=== PATIENT | female | born 1965 | race Caucasian/White ===

== ENCOUNTER 2019-02-22 14:37 | Outpatient (REF) | payer BC, SELFPAY ==
--- NOTE | 2019-02-22 14:00 | PAPFT_PTH ---
PATIENT: Heather Tipton LOC: N U#:[id number] AGE/SX: 54/F ROOM: RE02/22/[address]: DAYANARA Jones : 1965 BED: DIS: 02/22/2019 SPEC #: [id number] RECD: 02/22/19 17:50 STATUS: ZEYAD REDominic #: [id number] BANG: 02/22/19 14:[address]: Kelli Ansari DEPT: FORMERLY [facility], [facility] Cytology RECD BY: Camila Gutiérrez ENTERED: 02/22/19 17:50 SP TYPE: PAPFT OTHR DR: Lit Mock Tissues: 1 - CX/ENDOCX FOR PAP SMEARS Procedures: PAP THIN PREP/UVM Screening HPV DNA PROBE Comments: [id number]
== END 2019-02-22 14:57 ==
LOC: LBN 14:37
PROVIDERS: PCP Internal Medicine; Visit Provider Nurse Practitioner Family
DX: Z12.4 Encounter for screening for malignant neoplasm of cervix (principal); Z11.51 Encounter for screening for human papillomavirus (HPV)
CPT/HCPCS: 88142; 87624

== ENCOUNTER 2020-07-25 09:42 | Outpatient (REF) | payer BC, SELFPAY ==
[2020-07-25 21:54] LABS: HCT 46.3 % (36.0-46.0); HGB 14.6 g/dL (11.2-15.7); MCH 26.9 pg (27.0-33.0); MCHC 31.5 % (32.0-36.0); MCV 85.4 fL (80-95); Platelet Count 335 10^3/uL (130-400); RBC 5.42 10^6/uL (3.93-5.22); RDW 12.9 % (11.7-14.6); WBC 5.61 10^3/uL (4.4-10.8)
[2020-07-25 22:17] LABS: ALT 22 U/L (14-59); AST 19 U/L (15-37); Albumin 3.9 g/dL (3.4-5.0); Alkaline Phosphatase 73 U/L (46-116); Anion Gap 8.4 mmol/L (3-11); BUN 16 mg/dL (7-18); Bilirubin, Total 0.4 mg/dL (0.2-1.0); CO2 27.6 mmol/L (21.0-32.0); CREATININE 0.87 mg/dL (0.55-1.02); Calcium 8.7 mg/dL (8.5-10.1); Chloride 103 mmol/L (98-107); FREE T4 1.05 ng/dL (0.76-1.46); Glucose 85 mg/dL (74-106); Potassium 4.2 mmol/L (3.5-5.1); Sodium 139 mmol/L (136-145); Total Protein 7.3 g/dL (6.4-8.2)
== END 2020-07-25 10:02 ==
LOC: NCHCN 09:42
PROVIDERS: PCP Internal Medicine; Visit Provider Family Medicine
DX: R53.83 Other fatigue (principal)
CPT/HCPCS: 80053; 85027; 84439; 84443

== ENCOUNTER 2020-10-02 15:14 | Outpatient (REF) | payer BC, SELFPAY | END 2020-10-02 15:34 | LOC: NCHCN 15:14 | PROVIDERS: PCP Internal Medicine; Visit Provider Family Medicine | DX: R30.0 Dysuria (principal) | CPT/HCPCS: 87086 ==

== ENCOUNTER 2020-10-22 00:24 | Outpatient (CLI) | payer BC, SELFPAY ==
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
== END 2020-10-22 00:44 ==
PROVIDERS: PCP Internal Medicine; Visit Provider Family Medicine
DX: Z12.31 Encounter for screening mammogram for malignant neoplasm of breast (principal); N63.25 Unspecified lump in the left breast, overlapping quadrants
CPT/HCPCS: 77063; 77067

== ENCOUNTER 2021-07-02 18:29 | Outpatient (REF) | payer BC, SELFPAY ==
[2021-07-02 15:25] LABS: Bilirubin Negative (Negative); Blood Large (Negative); Clarity Cloudy (Clear); Glucose Negative (Negative); Ketones Negative (Negative); Leukocyte Esterase Small (Negative); Nitrite Negative (Negative); Specific Gravity 1.025 (1.005-1.025); Urobilinogen 0.2 EU/dL (Up TO 0.2); pH 7.5 (5-8)
[2021-07-02 16:24] LABS: RBC >50 HPF (0-2); WBC >50 HPF (0-5)
[2021-07-02 16:25] LABS: Bacteria Negative HPF (Negative); Casts Negative LPF (Negative); Crystals Moderate Amorphous HPF (Negative); Epithelial Cells Negative HPF (Negative); Mucus Negative (Negative); Other Cells Negative (Negative)
[2021-07-02 16:26] LABS: C & S Indicated? Yes
== END 2021-07-02 18:30 | disposition home or self-care (01) ==
LOC: NCHCN 18:29
PROVIDERS: PCP Internal Medicine; Visit Provider Nurse Practitioner Family
DX: R30.0 Dysuria (principal)
CPT/HCPCS: 81003; 81015; 87086

== ENCOUNTER 2022-05-25 13:54 | Emergency (ER) | payer BC, SELFPAY ==
[2022-05-25 13:45] VITALS: BP 99/60; PULSE 65; RESP 18; TEMP 36.4; O2SAT 95
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
[2022-05-25] MEDS: traMADol 50 MG TAB PO (14:37)
[2022-05-25] MEDS: Acetaminophen 500 MG TAB 1000 MG PO (14:37)
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
== END 2022-05-25 18:22 | disposition home or self-care (01) ==
PROVIDERS: Emergency Provider Physician Assistant; PCP Internal Medicine
DX: S63.681A Other sprain of right thumb, initial encounter (principal); S81.011A Laceration without foreign body, right knee, initial encounter; S50.811A Abrasion of right forearm, initial encounter; V29.9XXA Motorcycle rider (driver) (passenger) injured in unspecified traffic accident, initial encounter
CPT/HCPCS: 29125; 73562; 99284; 73090; 73130; 73564; 99283

== ENCOUNTER 2022-06-10 09:57 | Day surgery (SDC) | payer BC, SELFPAY ==
--- NOTE | 2022-06-09 22:14 | PDOC.DSDIS_ITS ---
Discharge Plan Disposition Patient Disposition: HOME Condition: Good Discharge Details Reason For Visit: Screening Attending Provider: Carole Silver Primary Care Provider: Lit Mock Home Meds and New Rx's Prescriptions: No Action bisacodyl [Dulcolax (bisacodyl)] 5 mg tablet,delayed release (DR/EC) 5 mg PO ONCE Qty: 4 0RF Rx Instructions: Take according to provider's instructions for colonoscopy prep. polyethylene glycol 3350 17 gram/dose powder 17 g PO ONCE Qty: 238 0RF Rx Instructions: To be taken as directed by prescriber's office for colonoscopy prep. Mirena 1 EACH intrauterine device 1 unit VG USEASDIRECTD Label Comments: 06/09/16 Pt states placed 5-7 years. PG lisinopril 10 mg Tablet 10 mg PO DAILY tramadol 50 mg tablet 1 tab PO Q8H PRN Label Comments: TAKE 1 TABLET BY MOUTH 3 TIMES DAILY NEEDED FOR PAIN TAKE WITH 2 EXTRA STRENGTH TYLENOL 3 TIMES DAILY acetaminophen [Tylenol Extra Strength] 500 MG tablet 1,000 mg PO PRN PRN Discharge Instructions Additional Instructions: DSU Colonoscopy Post- Op Instructions Instructions for Everyone who is given Anesthesia: For your safety, please do the following for the next twenty-four (24) hours: *Do Not operate a motor vehicle (car, truck, motorcycle, etc.) *Do Not drink alcoholic beverages or use any recreational drugs for the first 24 hours or while taking pain medications. The medications in your body may have a reaction that can be dangerous. *Do Not make any important decisions or sign any important papers. Findings: Minor diverticula Minor I/E hemorrhoids small polyp Abnormal mole. This should be removed. Please schedule 1 hour appt w/ surgical assoc. 1. No lifting over 20 pounds or strenuous activity for the first 24 hours after your procedure. After 24 hours there are no restrictions on your activity but you may feel fatigued for a few days. 2. After you arrive home you may have a light meal and return to your normal diet as you can tolerate it without feeling sick to your stomach. 3. You may have a bloated, gaseous feeling in your belly (abdomen) after a colonoscopy. Passing gas and belching will help. Walking or lying down on your left side with your knees flexed may relieve the discomfort. Call the office at [phone] (Office) or [phone] (Hospital) right away if you notice any of the following: a.Vomiting of blood or ?coffee ground stools?. b.Rectal bleeding 1Tbsp, blood clots or continuous bleeding. c.Severe belly (abdominal) pain. d.A hard distended belly (abdomen) and an inability to pass gas. 4. Please don?t expect to have a normal BM (bowel movement) for 2-3 days after your procedure. 5. If there are questions regarding the findings of your procedure, please contact your doctor 6. If you are unable to contact your doctor with a problem, contact the hospital at [phone]. 7. Continue all your regular medications unless directed otherwise. I understand the above instructions and have no questions. Signature of Patient or Adult Escort Name of Responsible Adult Escort Signature of Nurse Date/Time Activity:: see above Diet:: see above
--- NOTE | 2022-06-09 22:15 | W.COLOREPORT ---
Colonoscopy Report Date of procedure: 06/10/22 Pre-op diagnosis general: CRC screen Post-op diagnosis procedure note: other (Internal and external hemorrhoids/minor diverticula/polyp) Surgeon: Carole Silver Anesthesia Type: General:No Airway Estimated blood loss (mL): 1 Pathology: other Complications: None Disposition: same day Prep: Miralax/Dulcolax Retraction Time: 10 Findings: Without Procedure Description: After informed consent was obtained the patient was taken to the procedure room and placed in a left decubitous position. Monitors were applied and a time out was done. The patients name, date of , procedure, allergies to medications and metal in their body was reviewed. The patient was then sedated. Once sedated and comfortable a rectal exam was done. External exam reveals x2 external hemorrhoids are not thrombosed and an old hemorrhoidal tag. She also has a 1.2 cm irregular pigmented lesion on her left inner thigh. Internal exam revealed a normal sphincter tone and no palpable masses. The scope was then introduced and retrofelexed. Grade 1 internal hemorrhoids were identified, as well as some hemorrhoidal tags without. The scope was then advanced to the cecum without difficulty. The TI and appendiceal orifice were identified. The prep was BB PS 2 in the cecum/right colon and transverse colon. BB PS 3 in the left colon sigmoid and rectum. For a total of 7.. She had a few small minor diverticula in the sigmoid colon with no signs of active bleeding or infection. She had a 0.75 cm lesion with irregular pigmentation on her left inner thigh-this should be removed. It is suspicious for a melanoma. She has extensive history of sun exposure. She has a Polyp at 30 cm, 0.75 mm and flat.. This is removed with a cold snare. All specimen is retrieved and no bleeding is noted. She also has an asymmetric bowel freckle on her left medial thigh that should be removed. The scope was then slowly retracted over 10 minutes back into the rectum. The scope was removed and the patient was woken up and taken back to Same day surgery in stable condition. The patient tolerated the procedure well and there were no immediate complications. Follow up: The patient should follow up in 7 years unless they develop changes in bowel habits or other new gastrointestinal complaints.
[2022-06-10 10:08] VITALS: BP 139/99; PULSE 101; RESP 20; TEMP 37; O2SAT 99
[2022-06-10] MEDS: Lactated Ringers 1,000 ML 80 ML IV (10:38)
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
[2022-06-10 12:13] VITALS: BMI 31.9
--- NOTE | 2022-06-10 13:13 | BOWEL_PTH ---
PATIENT: Heather Tipton LOC: [facility] U#:[id number] AGE/SX: 57/F ROOM: RE06/10/[address]: Carole Silver : 1965 BED: DIS: 06/10/2022 SPEC #: [id number] RECD: 06/10/22 17:15 STATUS: ZEYAD RE #: [id number] BANG: 06/10/22 13:[address]: Carole Silver DEPT: Surgical Specimen RECD BY: Camila Gutiérrez ENTERED: 06/10/22 17:15 SP TYPE: Bowel OTHR DR: Lit Mock Tissues: 1 - BIOPSY BOWEL Procedures: GROSS AND MICRO LEVEL 4 Comments: [id number]
[2022-06-10 13:27] VITALS: BP 135/89; PULSE 85; RESP 20; TEMP 36.3; O2SAT 96
[2022-06-10 13:50] VITALS: BP 130/87; PULSE 71; RESP 18; TEMP 36.6; O2SAT 98
--- NOTE | 2022-06-11 07:00 | W.ANESPOSTOP ---
Postoperative Evaluation Date, Time and Location Date Performed: 06/10/22 Time Performed: 14:02 Patient Location: Day Surgery Unit Vital Signs Most Recent Imported Vital Signs: Most Recent Vital Signs Temp Pulse Resp BP Pulse Ox 36.6 C 71 18 130/87 98 06/10/22 13:50 06/10/22 13:50 06/10/22 13:50 06/10/22 13:50 06/10/22 13:50 Pain Score Most Recent Pain Score: Most Recent Pain Score Pain Level 0 06/10/22 13:50 Assessment Mental Status: Awake (Alert & Oriented to Patient Baseline) Airway and Respiratory Function: Patent airway with normal (patient baseline) respiratory exam Cardiovascular Function: Hemodynamically Stable Hydration Status: Adequately Hydrated Nausea & Vomiting: No Nausea or Vomiting Pain: Pt. Denies Any Pain Peripheral Nerve Block: Patient did not receive a nerve block
== END 2022-06-10 14:32 | disposition home or self-care (01) ==
PROVIDERS: PCP Internal Medicine; Visit Provider Surgery
PROC: 0DJD8ZZ Inspection of Lower Intestinal Tract, Via Natural or Artificial Opening Endoscopic (ICD-10-PCS; CPT 45378; principal; 2022-06-10 12:15)
DX: Z12.11 Encounter for screening for malignant neoplasm of colon (principal); K63.5 Polyp of colon; K64.8 Other hemorrhoids; K57.30 Diverticulosis of large intestine without perforation or abscess without bleeding
CPT/HCPCS: 45385; 81025; 88305

== ENCOUNTER 2022-06-27 16:57 | Outpatient (REF) | payer BC, SELFPAY ==
--- NOTE | 2022-06-27 14:15 | SKI_PTH ---
PATIENT: Heather Tipton LOC: N U#:[id number] AGE/SX: 57/F ROOM: RE06/27/[address]: Duncan Jarvis DO : 1965 BED: DIS: 06/27/2022 SPEC #: [id number] RECD: 06/30/22 11:19 STATUS: ZEYAD REQ #: [id number] BANG: 06/27/22 14:[address]: Duncan Jarvis DEPT: Surgical Specimen RECD BY: Camila Gutiérrez ENTERED: 06/30/22 11:20 SP TYPE: ANGELITO CAVANAUGH DR: Lit Mock Tissues: 1 - SKIN BIOPSY(SHAVE/PUNCH) 2 - SKIN BIOPSY(SHAVE/PUNCH) 3 - SKIN BIOPSY(SHAVE/PUNCH) Procedures: SKIN LEVEL 4 Comments: [id number]
== END 2022-06-27 16:58 | disposition home or self-care (01) ==
LOC: LBN 16:57
PROVIDERS: PCP Internal Medicine; Visit Provider Otolaryngology Otolaryngology/Facial Plastic Surgery
DX: D22.5 Melanocytic nevi of trunk (principal); L82.1 Other seborrheic keratosis
CPT/HCPCS: 88305

== ENCOUNTER 2022-06-30 14:34 | Outpatient (REF) | payer BC, SELFPAY ==
--- NOTE | 2022-06-30 14:05 | SKI_PTH ---
PATIENT: Heather Tipton LOC: [facility] U#:[id number] AGE/SX: 57/F ROOM: RE06/30/[address]: Carole Silver : 1965 BED: DIS: 06/30/2022 SPEC #: [id number] RECD: 06/30/22 18:30 STATUS: ZEYAD REDominic #: [id number] BANG: 06/30/22 14:[address]: Carole Silver DEPT: Surgical Specimen RECD BY: Camila Gutiérrez ENTERED: 06/30/22 18:31 SP TYPE: ANGELITO CAVANAUGH DR: Lit Mock Tissues: 1 - SKIN BIOPSY(SHAVE/PUNCH) Procedures: IMMUNOPEROXIDASE STAIN SKIN LEVEL 4 Comments: [id number]
== END 2022-06-30 14:35 | disposition home or self-care (01) ==
LOC: LBN 14:34
PROVIDERS: PCP Internal Medicine; Visit Provider Surgery
DX: D22.72 Melanocytic nevi of left lower limb, including hip (principal)
CPT/HCPCS: 88305; 88361

== ENCOUNTER 2022-09-19 17:46 | Outpatient (REF) | payer BC, SELFPAY ==
[2022-09-19 15:11] LABS: ALT 22 U/L (14-59); AST 13 U/L (15-37); Albumin 4.1 g/dL (3.4-5.0); Alkaline Phosphatase 86 U/L (46-116); Anion Gap 8.7 mmol/L (3-11); BUN 14 mg/dL (7-18); Bilirubin, Total 0.5 mg/dL (0.2-1.0); CO2 26.3 mmol/L (21.0-32.0); CREATININE 0.7 mg/dL (0.55-1.02); Calcium 9.5 mg/dL (8.5-10.1); Calculated LDL 176 mg/dL (<100); Chloride 103 mmol/L (98-107); Cholesterol 258 mg/dL (<200); Estimated GFR 100.81 (mL/min/1.73m2); Glucose 92 mg/dL (74-106); HDL Cholesterol 56 mg/dL (40-60); Potassium 4.4 mmol/L (3.5-5.1); Sodium 138 mmol/L (136-145); Total Protein 7.8 g/dL (6.4-8.2); Triglyceride 130 mg/dL (<150)
== END 2022-09-19 17:47 | disposition home or self-care (01) ==
LOC: NCHCN 17:46
PROVIDERS: PCP Internal Medicine; Visit Provider Nurse Practitioner Family
DX: I10 Essential (primary) hypertension (principal); R53.83 Other fatigue; R42 Dizziness and giddiness
CPT/HCPCS: 80053; 80061

== ENCOUNTER → 2022-10-15 12:32 | Outpatient (CLI) | payer BC, SELFPAY ==
--- NOTE | 2022-10-15 | DI.RAD_ITS ---
Exam(s) XR CHEST 2V PA LATERAL EXAM: XR CHEST 2V PA LATERAL CLINICAL HISTORY: COUGH R05.8 TECHNIQUE: 2D digital imaging was performed. COMPARISON: No exams were available for comparison FINDINGS: The heart is not enlarged. The lungs are clear and well expanded. No pleural effusion seen. Mediastin al contours appear intact. IMPRESSION: Normal chest. RADIATION DOSE DELIVERED: Total DLP
== END ==
PROVIDERS: PCP Internal Medicine; Visit Provider Physician Assistant Medical
DX: R05.8 Other specified cough (principal)
CPT/HCPCS: 71046

== ENCOUNTER 2022-10-15 15:28 | Outpatient (REF) | payer BC, SELFPAY ==
[2022-10-15 14:30] LABS: Abs Immature Grans 0.03 10^3/uL (0.0-0.06); Absolute Basophil Count 0.05 10^3/uL (0.0-0.2); Absolute Eosinophil Count 0.12 10^3/uL (0.0-0.7); Absolute Lymphocyte Count 2.27 10^3/uL (1.2-3.4); Absolute Monocyte Count 0.51 10^3/uL (0.1-0.8); Absolute Neutrophil Count 5.41 10^3/uL (1.2-6.7); Basophils % 0.6; Eosinophils % 1.4; HCT 43.9 % (36.0-46.0); HGB 14.1 g/dL (11.2-15.7); Immature Grans % 0.4; Lymphocytes % 27.1; MCH 27.3 pg (27.0-33.0); MCHC 32.1 % (32.0-36.0); MCV 85 fL (80-95); MPV 10.8 fL (8.0-11.0); Monocytes % 6.1; Neutrophils % 64.4; Platelet Count 389 10^3/uL (130-400); RBC 5.16 10^6/uL (3.93-5.22); RDW 12.9 % (11.7-14.6); RDW-SD 39.4 fL; WBC 8.39 10^3/uL (4.4-10.8)
[2022-10-15 14:45] LABS: ALT 20 U/L (14-59); AST 14 U/L (15-37); Albumin 4.2 g/dL (3.4-5.0); Alkaline Phosphatase 77 U/L (46-116); Anion Gap 7.4 mmol/L (3-11); BUN 12 mg/dL (7-18); Bilirubin, Total 0.4 mg/dL (0.2-1.0); CO2 29.6 mmol/L (21.0-32.0); CREATININE 0.8 mg/dL (0.55-1.02); Calcium 9.1 mg/dL (8.5-10.1); Chloride 105 mmol/L (98-107); Estimated GFR 85.89 (mL/min/1.73m2); Glucose 109 mg/dL (74-106); Lipase 76 U/L (73-393); Potassium 4.1 mmol/L (3.5-5.1); Sodium 142 mmol/L (136-145); Total Protein 7.9 g/dL (6.4-8.2)
== END 2022-10-15 15:29 | disposition home or self-care (01) ==
LOC: LBN 15:28
PROVIDERS: PCP Internal Medicine; Visit Provider Physician Assistant Medical
DX: R10.9 Unspecified abdominal pain (principal)
CPT/HCPCS: 80053; 83690; 85025

== ENCOUNTER → 2022-10-22 01:03 | Outpatient (CLI) | payer BC, SELFPAY ==
--- NOTE | 2022-10-22 | DI.MAMMO_ITS ---
Exam(s) MAMMO SCREENING EXAM: MAMMO SCREENING CLINICAL HISTORY: SCREENING, Z12.31 TECHNIQUE: Bilateral full field digital CC and MLO mammographic images were obtained with 3D tomosyn thesis and utilizing computer aided detection (CAD). COMPARISON: Available for comparison. FINDINGS: Masses/Architectural Distortion: None seen. Microcalcifications: No suspicious pleomorphic-type are seen. Skin Thickening/Nipple Retraction: None. IMPRESSION: 1. No significant interval change with no specific features of malignancy noted. 2. Unless there is more urgent need, screening mammography is recommended, as per [employer] guidelines. BI-RADS Category 1 - Negative Breast Density - Category B - Scattered areas of fibroglandular density Breast density category C or D implies that the patient has dense breast tissue. Dense breast tissue is very common and is not abnormal but dense breast tissue can make it harder to find cancer on a ma mmogram. Also, dense breast tissue may increase their breast cancer risk. This information about the result of the mammogram report was provided to the patient to raise their awareness. Use this report when you speak with the patient about their risks for breast cancer, which includes their family hist ory. At that time, you may recommend for more screening tests (Ultrasound or MRI) as they might be us eful based on their risk. A negative radiographic report should not delay biopsy if a dominant or clinically suspicious mass is present. Up to ten percent of cancers are not identified on mammography. A negative report may reinforce clinical impression. Adenosis and dense breasts may obscure an underlying neoplasm. False positive reports average 6 to 10%. Patient will receive a letter notifying them of these results.
== END ==
PROVIDERS: PCP Internal Medicine; Visit Provider Nurse Practitioner Family
DX: Z12.31 Encounter for screening mammogram for malignant neoplasm of breast (principal)
CPT/HCPCS: 77063; 77067

== ENCOUNTER 2023-01-19 10:14 | Outpatient (CLI) | payer BC, SELFPAY ==
--- NOTE | 2023-01-19 09:31 | DI.RAD_ITS ---
Exam(s) XR THUMB RT EXAM: XR THUMB RT CLINICAL HISTORY: R thumb pain. TECHNIQUE: 2D digital imaging was performed of the right finger. Three views were obtained. PA/AP, oblique, and lateral views were obtained. COMPARISON: CR,XR XR HAND RT COMPLETE from 05/25/2022 FINDINGS: BONES: There appears to be some fragmentation of the posterior lateral aspect of the base of the prox imal phalanx of the thumb. This was not present on the prior examination. This may represent a frac ture. Please correlate with patient's clinical history. No bony destructive lesion is seen. JOINTS: There are mild degenerative changes at the interphalangeal joint of the thumb. SOFT TISSUE: Normal. IMPRESSION: 1. Question of a fracture involving the lateral aspect of the base of the proximal phalanx of the azucena mb. Please correlate clinically. 2. Mild degenerative changes at the interphalangeal joint of the thumb. DATA REPOSITORY: RADIATION DOSE DELIVERED:
== END 2023-01-19 10:15 | disposition home or self-care (01) ==
LOC: DIORS 10:14
PROVIDERS: PCP Internal Medicine; Referring Provider Internal Medicine; Visit Provider Physician Assistant
DX: S69.81XA Other specified injuries of right wrist, hand and finger(s), initial encounter; M79.644 Pain in right finger(s); S62.514A Nondisplaced fracture of proximal phalanx of right thumb, initial encounter for closed fracture
CPT/HCPCS: 73140

== ENCOUNTER 2023-03-04 01:07 | Outpatient (CLI) | payer BC, SELFPAY ==
--- NOTE | 2023-03-04 09:00 | DI.MRI_ITS ---
Exam(s) MR UPPER EXTREMITY RT WO EXAM: MR UPPER EXTREMITY RT WO CLINICAL HISTORY: right thumb injury volar plate,subluxation rt thumb,s69.90xa,s63.101a. TECHNIQUE: Multiplanar multisequence MRI was performed. CONTRAST MATERIAL: Noncontrast COMPARISON: Plain films [address] January 29 FINDINGS: Exam is mildly limited by motion. There is edema in the base phalanx of the thumb, at the dorsal, ul sil aspect. This is suspicious for fracture. Multiple tiny bony fragments are noted at the ventral a spect of the 1st metacarpophalangeal joint. There is surrounding soft tissue edema. There is sublux ation ventrally. The tendons appear intact. The collateral ligaments appear intact. IMPRESSION: Fracture and edema at the base of the proximal phalanx of thumb. Subluxation ventrally. DATA REPOSITORY:
--- NOTE | 2023-03-06 14:56 | DI.VRAD_ITS ---
PROCEDURE INFORMATION: Exam: MR Right Upper Extremity Other Than Joint Without Contrast, Thumb. Exam date and time: 03/04/2023 2:33 PM Age: 58 years old Clinical indication: Pain; Patient HX: Subluxation RT thumb, volar plate injury TECHNIQUE: Imaging protocol: Magnetic resonance imaging of the right upper extremity other than joint without contrast. Exam focused on the thumb. COMPARISON: CT UPPER EXTREMITY RT WO 01/30/2023 10:49 AM FINDINGS: Bones/joints: Anterior subluxation of the proximal phalanx of the thumb. Edema and chronic fracture deformity of the dorsal base of the proximal phalanx of the thumb. There is anterior displacement of the dorsal plate of the metacarpal phalangeal joint space of the thumb. There is detachment of the plate from the proximal phalanx. The volar plate is markedly edematous and indistinct. Likely torn. Collateral ligaments of digits: The radial collateral and ulnar collateral ligaments are grossly intact though not well visualized. Flexor compartment tendons: Fluid present in the flexor tendon sheath of the thumb. No tear. Extensor compartment tendons: Unremarkable. No evidence of tear. Soft tissues: Unremarkable. IMPRESSION: 1. Anterior subluxation of the proximal phalanx of the thumb. Dorsal fracture deformity of the base of the proximal phalanx of the thumb. 2. Injury to the volar and dorsal plates of the metacarpophalangeal joint. 3. The flexor pollicis longus tendon is intact though there is tenosynovitis present. Dictated and Authenticated by: Jn Adrian MD. Ordering:EUN Benitez MD
== END 2023-03-04 01:27 ==
LOC: DI 01:07
PROVIDERS: PCP Internal Medicine; Visit Provider Student in an Organized Health Care Education/Training Program
DX: S63.101A Unspecified subluxation of right thumb, initial encounter (principal); S69.90XA Unspecified injury of unspecified wrist, hand and finger(s), initial encounter
CPT/HCPCS: 73218

== ENCOUNTER 2023-04-21 09:51 | Day surgery (SDC) | payer BC, SELFPAY ==
--- NOTE | 2023-04-21 09:47 | W.PM.DSUDISC ---
Date of service: 04/21/23 Time of Service: 11:38 Discharge Plan Disposition Patient Disposition: Home Condition: Good Discharge Details Reason For Visit: Right thumb subluxation; injury to MCP volar plate Attending Provider: Emmanuel Matute Primary Care Provider: Lit Mcok Home Meds and New Rx's Prescriptions: New acetaminophen 500 mg tablet 500 mg PO Q6H PRN (Reason: pain) Qty: 60 2RF tramadol 50 mg tablet 50 mg PO Q4H PRN (Reason: severe postoperative pain) Qty: 6 0RF Rx Instructions: Take one tablet up to every 4 hours as needed for severe pain Continued lisinopril 10 mg tablet 20 mg PO DAILY Discontinued acetaminophen [Tylenol Extra Strength] 500 MG tablet 1,000 mg PO PRN PRN Discharge Instructions Additional Instructions: Thumb MCP Discharge Instructions Activity: You should keep the hand/thumb elevated as much as possible for the first few days. You may use the other fingers as tolerated but avoid trying to do too much too soon. You did receive a steroid injection into the MCP joint. The injection may cause increased discomfort for the first 2-3 days and can take up to two weeks to be fully beneficial. Medications: - You should take Tylenol for baseline pain control. - You have Tramadol for breakthrough pain. - You may apply ice over the thumb. Follow-up: 10-14 days Referrals: Emmanuel Matute MD [ [facility] STAFF PHYSICIAN] - Activity:: Elevate Diet:: As Tolerated Discharge Orders Discharge Orders: Discharge Order (Routine); Ordered 04/21/23 Ordered By: Carole Erazo
--- NOTE | 2023-04-21 09:57 | W.ANESPRE ---
General Info Date of Service Date Performed: 04/21/23 Height: 5 ft 2 in Weight: 83.915 kg Body Mass Index (BMI): 33.8 Surgical Procedure: Operation Date: 04/21/23 12:55 Proposed Procedure Side Surgeon p Exam Under Anesthesia Thumb w/ Potential Closed Vs Open Reduction Right Emmanuel Matute MD Meds Allergies and Home Medications Allergies Allergy/AdvReac Type Severity Reaction Status Date / Time NSAIDS (Non-Steroidal Allergy Intermediate Swelling/Ed Verified 04/21/23 10:29 Anti-Inflamma alma Home Medication Medication Instructions Recorded acetaminophen 500 mg tablet 1,000 mg PO PRN PRN 10/05/17 (Tylenol Extra Strength) lisinopril 10 mg tablet 20 mg PO DAILY 11/18/22 Current Visit Medications: Current Medications Generic Name Dose Route Start Last Admin Trade Name Freq PRN Reason Stop Dose Admin Acetaminophen 650 mg 04/21/23 09:46 Acetaminophen 325 Mg Tab PO 05/21/23 09:45 Q4H PRN PRN Hydrocodone Bitart/Acetaminophen 0 tab 04/21/23 09:44 Hydrocodone 5/Acetaminophen 325 Tab PO 05/21/23 09:43 Q3H PRN PRN Pain Ringer's Solution 1,000 mls @ 80 mls/hr 04/21/23 06:00 IV 04/21/23 23:59 INFUSION WARREN IV Miscellaneous Supplies 1 each 04/21/23 06:00 Iv Access IV 04/21/23 23:59 DIRECTED WARREN Sodium Chloride 0 ml 04/21/23 06:00 Normal Saline Flush 10 Ml Syr IV 04/21/23 23:59 PRN PRN Sodium Chloride 0 ml 04/21/23 06:00 Normal Saline 10 Ml Vial IJ 04/21/23 23:59 DIRECTED PRN Sterile Water 0 ml 04/21/23 06:00 Water,Injection,Sterile 10 Ml Vial IJ 04/21/23 23:59 DIRECTED PRN PFSH Active Problems Active Problems: Problem Status Onset Code Encounter for screening colonoscopy Z12.11 Fatigue R53.83 Dizziness R42 Hyperplastic colon polyp ~06/09/22 K63.5 Skin lesion L98.9 Pigmented skin lesion suspicious for malignant neoplasm L81.9 Subluxation of right thumb ~05/2022 S63.101A Injury of volar plate of metacarpophalangeal (MCP) joint of thumb ~05/2022 S69.90XA Medical History Medical History Basal cell carcinoma [facility] [place] skin lesion removed right wood Dysuria Hypertension Left carpal tunnel syndrome Right Achilles tendinitis Medical History Comments:: I wake up really hard and throw up; have not had this issue at [facility] Surgical History Surgical History section Cholecystectomy H/O dilation and curettage History of colonoscopy with polypectomy (~06/09/22) hyperplastic/inflammatory polyp Reduction mammoplasty S/P carpal tunnel release Total replacement of hip bilat Tobacco Smoking/Tobacco Use Status: Never Alcohol Alcohol Intake: current Alcohol intake frequency: a few times a week Substance Use Substance use: Never Substance use type: does not use Prental History History 1 Para 1 Hx # Term Pregnancies Multiple births Hx # Pregnancies Ectopic pregnancies AB induced Hx Number of Living Children AB spontaneous Vital Signs and Lab Results Vital Signs Most Recent Vital Signs in EMR: Temp Pulse Resp BP Pulse Ox 37.0 C 67 18 114/87 97 04/21/23 10:27 04/21/23 10:27 04/21/23 10:27 04/21/23 10:27 04/21/23 10:27 Lab Results Blood Type / Crossmatch: No Data to Display Complete Blood Count: No Data to Display Complete Metabolic Panel: No Data to Display Liver Function Panel: No Data to Display Coagulation Panel: No Data to Display Cardiac Panel: No Data to Display Arterial Blood Gas: No Data to Display Venous Blood Gas: No Data to Display Pancreas Panel: No Data to Display Thyroid Panel: No Data to Display Infectious Disease: No Data to Display Blood Cultures: No Data to Display Toxicology Panel: No Data to Display Anesthesia Assessment and Plan Anesthesia History Personal History: PONV Family History: No Family History of Anesthesia Complications Exercise Tolerance Exercise Tolerance: Metabolic Equivalents>4 Cardiac & Pulmonary Exam Cardiac Exam: Normal S1/S2 Heart Sounds Pulmonary Exam: Clear Bilateral Breath Sounds Implantable Cardiac Device Does patient have a Pacemaker or an ICD?: No Airway Exam Known Difficult Airway: No Mallampati Class: 2 Mouth Opening: Normal (> 3cm) Thyromental Distance: Greater than 3 cm Neck Range of Motion: Full ROM Neck Circumference: Normal Teeth Condition: Normal Dentition Airway Comments: Wears Breathe-Right strip every night during sleep ASA Classification ASA Score: ASA 2 Emergency Case?: No NPO Status NPO Status: NPO Clears >2 hours, Solids >8 hours Anesthesia Plan Resuscitation Status: Full Code Anesthesia Technique: General Anesthesia Airway Planned: LMA Monitors Used: Standard Monitors Preoperative Comments:: 58 yo female for thumb exploration. Sig PMHx: HTN (lisinopril), dizziness, never smoker, occ EtOH, Previous Anes: - colo, prop, natural airway, no issues.
--- NOTE | 2023-04-21 10:00 | DI.RAD_ITS ---
Exam(s) XR THUMB RT EXAM: XR THUMB RT CLINICAL HISTORY: Right thumb subluxation. TECHNIQUE: 2D digital imaging was performed. COMPARISON: No exams were available for comparison FINDINGS: Possibly provided during orthopedic procedure on finger-thumb. See procedure report for details. Radiation exposure index/cumulative dose: Ka,r= 0.66 mGy IMPRESSION: DATA REPOSITORY: RADIATION DOSE DELIVERED:
[2023-04-21 10:27] VITALS: BP 114/87; PULSE 67; RESP 18; TEMP 37; O2SAT 97
[2023-04-21] MEDS: Lactated Ringers 1,000 ML 80 ML IV (10:40)
[2023-04-21 10:41] VITALS: BMI 33.8
--- NOTE | 2023-04-21 11:17 | HPE_ITS ---
Assessment and Plan Assessment and plan (1) Injury of volar plate of metacarpophalangeal (MCP) joint of thumb: Status: Acute (2) Subluxation of right thumb: Status: Acute Assessment and plan: Heather is a 58-year-old who has pain about the right thumb MCP joint with subluxation from previous trauma. She has failed all other nonoperative options and today I did offer closed was open reduction with Examiner anesthesia. I reviewed the technical features of the case. I discussed the risk to include bleeding, infection, pain, stiffness, recurrent instability, need for repeat procedures, damage nerves and vessels. Despite these risk, she elects to proceed. History of Present Illness History of Present Illness Chief Complaint: R Thumb MCP Subluxation and Pain Narrative: The patient is a 58-year-old female who has ongoing right thumb MCP joint pain following a trauma last summer. She has notable subluxation with what appears to be interposed bony fragment. She has failed all conservative options but continues to have pain and dysfunction. Therefore, offered an exam under anesthesia with potential open reduction of the right thumb. Please see the previous office note for complete detailed history. She reports no new medical symptoms. No chest pain or shortness of breath. No numbness or tingling. Review of Systems All systems reviewed & are unremarkable except as noted in HPI and below PFSH All Active Problems Encounter for screening colonoscopy (Acute) Fatigue (Acute) Dizziness (Acute) Hyperplastic colon polyp (Acute ~06/09/22) Skin lesion (Acute) Pigmented skin lesion suspicious for malignant neoplasm (Acute) Subluxation of right thumb (Acute ~05/2022) Injury of volar plate of metacarpophalangeal (MCP) joint of thumb (Acute ~05/2022) RIGHT Medical History Basal cell carcinoma [facility] [place] 12/2022 skin lesion removed right wood Dysuria Hypertension Left carpal tunnel syndrome Right Achilles tendinitis Surgical History section Cholecystectomy H/O dilation and curettage History of colonoscopy with polypectomy (~06/09/22) hyperplastic/inflammatory polyp Reduction mammoplasty S/P carpal tunnel release Total replacement of hip bilat Family History Father Lymphoma Leukemia Mother Hypertension Social History Smoking/Tobacco Use Status: Never Smoking risk assessment performed?: Yes Alcohol Intake: current Alcohol Intake frequency: a few times a week Alcohol type: beer, wine and hard liquor Drug use: Never Substance use type: does not use Details: alcohol: t-1, one beer Current gender identity: female Do you feel safe at home: Yes Do you feel safe in your relationship?: Yes History History 1 Para 1 Hx # Term Pregnancies Multiple births Hx # Pregnancies Ectopic pregnancies AB induced Hx Number of Living Children AB spontaneous Meds Allergies and Home Medications Allergies Allergy/AdvReac Type Severity Reaction Status Date / Time NSAIDS (Non-Steroidal Allergy Intermediate Swelling/Ed Verified 04/21/23 10:29 Anti-Inflamma alma Home Medications Medication Instructions Recorded Confirmed Type acetaminophen 500 mg tablet 1,000 mg PO PRN PRN 10/05/17 04/21/23 History (Tylenol Extra Strength) lisinopril 10 mg tablet 20 mg PO DAILY 11/18/22 04/21/23 History Exam Const General: cooperative, healthy appearing, comfortable and no acute distress Resp Auscultation: clear to auscultation bilaterally Cardio Rate: regular rate Rhythm: regular rhythm Results Last Vital Signs Temp 37.0 C 04/21/23 10:27 Pulse 67 04/21/23 10:27 Resp 18 04/21/23 10:27 BP 114/87 04/21/23 10:27 Pulse Ox 97 04/21/23 10:27
[2023-04-21 11:53] VITALS: BP 106/68; PULSE 77; RESP 16; TEMP 36.6; O2SAT 94
--- NOTE | 2023-04-21 12:06 | W.ANESPOSTOP ---
Postoperative Evaluation Date, Time and Location Date Performed: 04/21/23 Time Performed: 12:06 Patient Location: Day Surgery Unit Vital Signs Most Recent Imported Vital Signs: Most Recent Vital Signs Temp Pulse Resp BP Pulse Ox 36.6 C 77 16 106/68 94 04/21/23 11:53 04/21/23 11:53 04/21/23 11:53 04/21/23 11:53 04/21/23 11:53 Pain Score Most Recent Pain Score: Most Recent Pain Score Pain Level 2 04/21/23 10:27 Assessment Mental Status: Arousable with meaningful communication Airway and Respiratory Function: Patent airway with normal (patient baseline) respiratory exam Cardiovascular Function: Hemodynamically Stable Hydration Status: Adequately Hydrated Nausea & Vomiting: No Nausea or Vomiting Pain: Pain is tolerable per patient Peripheral Nerve Block: Patient did not receive a nerve block
[2023-04-21 12:33] VITALS: BP 128/74; PULSE 62; RESP 62; TEMP 36.4; O2SAT 97
[2023-04-21] MEDS: Acetaminophen 325 MG TAB 650 MG PO (12:33)
[2023-04-21] MEDS: Bupivacaine 0.5% Pres-Free 30 ML VIAL (13:17)
[2023-04-21] MEDS: methylPREDNISolone ACETATE 80 MG/ML VIAL (13:18)
--- NOTE | 2023-04-21 14:39 | ROE_ITS ---
Date of service: 04/21/23 Time of Service: 12:00 Operative Note Operative Note DATE OF PROCEDURE: 04/21/23 PRE-OP DIAGNOSIS: Right thumb MCP subluxation POST-OP DIAGNOSIS: same (With arthritis) PROCEDURE: Exam under anesthesia, right thumb Right thumb MCP joint injection SURGEON: Emmanuel Matute ANESTHESIA TYPE: General LMA/ETT Refer to Anesthesia Record ESTIMATED BLOOD LOSS: 0 TOURNIQUET TIME: 0 COMPLICATIONS: None Patient was transported to: same day Patient's condition: stable Indications: Heather is a 58-year-old female who suffered an injury to her right thumb last summer. She has continued have pain with use of the thumb as well as some stiffness. She has noted chronic subluxation of the thumb with some bony fragmentation around the thumb joint. CT scan confirmed this. Also showed signs of arthritis. Given the lack of progress with thumb joint I did offer an exam and anesthesia to see if these bony fragments were potentially impinging in the MCP joint preventing concentric reduction and function of the thumb. I reviewed this with her in the office. I was prepared to perform open reduction if necessary. I reviewed the technical features this case with her. I discussed the risk of the procedure to include bleeding, infection, pain, stiffness, damage to nerves and vessels, damage to muscles and tendons, continue instability, need for repeat procedures. Despite these risk, she elected to proceed. Findings: Unstable MCP joint in anterior and posterior plane. Easily reducible without impingement of the palmar bony fragment Procedure Description: Heather was greeted the preoperative holding area. Her identity was confirmed the correct site was identified and marked. The consent was reviewed the patient and signed. History physical was updated. She was taken to the operating room placed in supine position. General LMA anesthesia was initiated. No prophylactic antibiotics were necessary. A timeout was performed for safe surgery. With fluoroscopy I was able to perform an exam under anesthesia. I was able to complete perform a complete evaluation of the thumb MCP joint. Through range of motion and the bony fragments seen over the palmar?radial aspect did not impinge at all. There was a volarly subluxed position of the thumb which was easily reducible. However, there was instability with anterior and posterior drawer about the thumb MCP joint, however, not with varus or valgus stress. Throughout the range of motion the bony fragment never appeared to impede range of motion of the thumb MCP joint. With maximal flexion I was able to create some impingement palmarly but not through the functional arc of motion. At this point I decided not to proceed with any open reduction given that the fragment did not seem to be impinging motion. I did perform an injection of the thumb MCP joint due to the arthritis noticed in the thumb both on the previous imaging but also today with fluoroscopy. I used a 25-gauge needle after prepping the skin with alcohol to 1 cc of 0.5% bupivacaine and 40 mg of Depo-Medrol. A Band- Aid was applied to site. She was awake from anesthesia and taken to Day Surgery in stable condition.
== END 2023-04-21 12:55 | disposition home or self-care (01) ==
PROVIDERS: PCP Internal Medicine; Visit Provider Student in an Organized Health Care Education/Training Program
PROC: (CPT 20600; principal; 2023-04-21 12:45)
DX: S63.10 Unspecified subluxation and dislocation of thumb; M25.541 Pain in joints of right hand
CPT/HCPCS: 20600; 81025; 73140; J1040; J1100; J2405

== ENCOUNTER 2024-01-12 20:26 | Outpatient (REF) | payer BC, SELFPAY ==
[2024-01-11 22:01] LABS: ALT 24 U/L (14-59); AST 13 U/L (15-37); Albumin 4.1 g/dL (3.4-5.0); Alkaline Phosphatase 80 U/L (46-116); Anion Gap 11.1 mmol/L (3-11); BUN 12 mg/dL (7-18); Bilirubin, Total 0.3 mg/dL (0.2-1.0); CO2 28.9 mmol/L (21.0-32.0); CREATININE 0.8 mg/dL (0.55-1.02); Calcium 9.4 mg/dL (8.5-10.1); Calculated LDL 145 mg/dL (<100); Chloride 104 mmol/L (98-107); Cholesterol 247 mg/dL (<200); Estimated GFR 84.82 (mL/min/1.73m2); Glucose 104 mg/dL (74-106); HDL Cholesterol 46 mg/dL (40-60); Potassium 3.9 mmol/L (3.5-5.1); Sodium 144 mmol/L (136-145); Total Protein 7.6 g/dL (6.4-8.2); Triglyceride 282 mg/dL (<150)
== END 2024-01-12 20:27 | disposition home or self-care (01) ==
LOC: NCHCN 20:26
PROVIDERS: PCP Internal Medicine; Visit Provider Family Medicine
DX: Z00.00 Encounter for general adult medical examination without abnormal findings (principal); Z13.220 Encounter for screening for lipoid disorders; Z13.21 Encounter for screening for nutritional disorder; Z13.228 Encounter for screening for other metabolic disorders
CPT/HCPCS: 80053; 80061; 82306

== ENCOUNTER 2024-06-08 14:42 | Outpatient (REF) | payer BC, SELFPAY ==
--- OUTSIDE RECORDS SUMMARY | 2024-06-08 14:46 | XMS_ITS | Encounter Summary ---
Author Organization [facility] Address [address] [place] [address] Care Team Providers Care Gas Distribution Plant Operator Name Role Phone Lit Mock MD Primary Care Provider [phone] Encounter Details Date Type Department Care Team (Late st Contact Info) Description 05/19/2006 Results Only [facility] [address] [place] [address] Triston French MD [address] [place] [phone] Social History Tobacco Use Types Packs/Day Years Used Date Smoking Tobacco: Never Assessed Sex and Gender Information Value Date Recorded Sex Assigned at Not on file Gender Identity Not on file Sexual Orientation Not on file documented as of this encounter Plan of Treatment Not on file documented as of this encounter Procedures Procedure Name Priority Date/Time Associated Diagnosis Comments SURGICAL PATHOLOGY Routine 05/19/2006 0:00 EDT documented in this encounter Results * SURGICAL PATHOLOGY (05/19/2006 0:00 EDT) Pathology Report: SURGICAL PATHOLOGY REPORT Reports generated via electronic interface contain original data; however they are lacking the format of the original report. Caution should be taken when reading/interpreti ng unformatted reports. Name: ? KALPANA TIPTON ? Accession #: ? [id number] ? : ? 1965 (Age: 41) ??F ? Collect Date: ? 05/19/2006 ? Location: ? [facility] ? Receive Date: ? 05/19/2006 ? Provider: SHYLA FRENCH MD Copy to: LIT MOCK MD ? Final Pathologic Diagnosis: ? Gallbladder, cholecystectomy: 1. ?Chronic cholecystitis. 2. ?Cholelithiasis. 3. ?One reactive lymph node. Document reviewed and electronically signed by: DARY BURROUGHS MD Report ??Date: 05/21/2006 17:24 By the signature above, the attending physician certifies that he/she has personally conducted a gross and/or microscopic examination of the described specimens and rendered or confirmed the above diagnosis. Specimen(s) Received: ? Gallbladder Clinical History: ? Cholelithiasis Gross Description: ? Received in formalin labelled [place] and gallbladder is an intact gallbladder which measures 8.7 cm in length and 3.8 cm in maximum diameter. ??The serosal surface is sweeney-purple, smooth and glistening. ??There is a minimal amount of attached adipose tissue. ??The specimen includes a 0.3 cm length of cystic duct. ??A cystic duct lymph node measuring 1.2 x 0.8 x 0.7 cm is present. The cut surface of the node is nunez-pink. ??The gallbladder is filled with approximately 60 cc of dark green viscid bile. ??There is a 5.3 x 3.0 x 3.0 cm mixed calculus which distends the distal end of the gallbladder. ??The gallbladder is lined by a dark green trabecular mucosa in the area which is distended by the stone. ??The remaining mucosa is dark green and velvety with yellow-gold stippling. ??The wall of the gallbladder is thin and measures 0.1 cm in thickness. [facility] medical center representative sections of the gallbladder are submitted as (A1). ?? One half of the cystic duct node is submitted as (A2). ??(TESSA Metz)/tmg End of Report [facility] 05/19/2006 05/19/2006 10: 37 EDT Triston French MD PATHOLOGY ORDERABLES Performing Organization Address City/State/[facility] Co de Phone Number [facility] [address] [place] [address] documented in this encounter Visit Diagnoses Not on filedocumented in this encounter Care Teams Gas Distribution Plant Operator Relationship Specialty Start Date End Date Lit Mock MD [address] [place] [id number] PCP - General 09/03/09 documented as of this encounter
--- OUTSIDE RECORDS SUMMARY | 2024-06-08 14:46 | XMS_ITS | Encounter Summary ---
Author Organization [facility] Address [address] [place] [address] Care Team Providers Care Contact Acid Plant Operator Helper Name Role Phone Lit Mock MD Primary Care Provider [phone] Encounter Details Date Type Department Care Team (Late st Contact Info) Description 10/30/[address] [facility] ([facility] [place] [address] [place], [place] [id number] Munir Feldman FNP [address] [place], [place] [id number] Social History Tobacco Use Types Packs/Day Years Used Date Smoking Tobacco: Never Assessed Sex and Gender Information Value Date Recorded Sex Assigned at Not on file Gender Identity Not on file Sexual Orientation Not on file documented as of this encounter Plan of Treatment Not on file documented as of this encounter Procedures Procedure Name Priority Date/Time Associated Diagnosis Comments PAP TEST- RESULT ONLY Routine 10/30/2011 0:00 EST documented in this encounter Results * PAP TEST- RESULT ONLY (10/30/2011 0:00 EST) Pathology Report: CYTOPATHOLOGY REPORT Reports generated via electronic interface contain original data; however they are lacking the format of the original report. Caution should be taken when reading/interpreti ng unformatted reports. Name: ? KALPANA TIPTON ? Accession #: ? [id number] : ? 1965 (Age: 46) ??F ?Collect Date: ? 10/30/2011 Location: ? [facility] ? Receive Date: ? 11/05/2011 Provider: ?MUNIR FELDMAN DIGITAL SOLUTIONS ARCHITECT Copy to: ? Specimen/Source: ?Pap Test, Cervix/Endocervix, ThinPrep Imaging System with manual evaluation Last Menstrual Period: ? 2009 ? SPECIMEN ADEQUACY ? Satisfactory for Evaluation - transformation zone component present GENERAL CATEGORIZATION ? Negative for Intraepithelial Lesion or Malignancy ? Document reviewed and electronically signed by: ? ENRIQUE Antoine(ASCP) ? Report Date: ??11/07/2011 14:03 End of Report [facility] 10/30/2011 11/05/2011 Munir Feldman DIGITAL SOLUT[employer] ARCHITECT PATHOLOGY ORDERABLES Performing Organization Address City/State/[facility] Co de Phone Number [facility] [address] [place] [address] documented in this encounter Visit Diagnoses Not on filedocumented in this encounter Care Teams Contact Acid Plant Operator Helper Relationship Specialty Start Date End Date Lit Mock MD [address] [place] [address] PCP - General 09/03/09 documented as of this encounter
--- OUTSIDE RECORDS SUMMARY | 2024-06-08 14:46 | XMS_ITS | Encounter Summary ---
Author Organization [facility] [address] Care Team Providers Care Tallow Refiner Name Role Phone Lit Mock MD Primary Care Provider [phone] Reason for Referral * Consultation (Routine) - Closed Specialty Diagnoses / Procedures Referred By Noel da silva Referred To Contact Dermatology Diagnoses History of skin cancer Erendira Edwards APRN [address] [place] [address] [facility] Dermatology [address] [place] [address] Referral ID Status Reason Start Date Expiration Date V isits Requested Visits Authorized [id number] Closed Consult, Test & Treat PCP Updated and/or Approved 09/26/2022 09/26/2023 6 6 Encounter Details Date Type Department Care Team (Latest Contact Info) Description 09/26/2022 Transcribe Orders eDH Incoming Referrals [phone] Erendira Edwards APRN [address] [place], [place] [id number] History of skin cancer Social History Tobacco Use Types Packs/Day Years Used Date Smoking Tobacco: Never Assessed Sex and Gender Information Value Date Recorded Sex Assigned at Not on file Gender Identity Not on file Sexual Orientation Not on file documented as of this encounter Plan of Treatment Scheduled Referrals Name Type Priority Associated Diagnoses Order Schedule Referral to Dermatology Outpatient Referral Routine History of skin cancer Ordered: 09/26/2022 documented as of this encounter Visit Diagnoses Diagnosis History of skin cancer Personal history of other malignant neoplasm of skin documented in this encounter Care Teams Tallow Refiner Relationship Specialty Start Date End Date Lit Mock MD [address] [place] [address] PCP - General 10/01/10 documented as of this encounter
--- OUTSIDE RECORDS SUMMARY | 2024-06-08 14:46 | XMS_ITS | Encounter Summary ---
Author Organization [facility] Address [address] [place] [address] Care Team Providers Care Felled Seam Operator Name Role Phone Lit Mock MD Primary Care Provider [phone] Encounter Details Date Type Department Care Team (Late st Contact Info) Description 12/08/2007 Results Only [facility] Medicine - [address] [id number] Chaya Chen MD [address] [place] [phone] Social History Tobacco Use Types Packs/Day Years Used Date Smoking Tobacco: Never Assessed Sex and Gender Information Value Date Recorded Sex Assigned at Not on file Gender Identity Not on file Sexual Orientation Not on file documented as of this encounter Plan of Treatment Not on file documented as of this encounter Procedures Procedure Name Priority Date/Time Associated Diagnosis Comments CYTOPATHOLOGY Routine 12/08/2007 0:00 EST documented in this encounter Results * CYTOPATHOLOGY (12/08/2007 0:00 EST) Pathology Report: CYTOPATHOLOGY REPORT Reports generated via electronic interface contain original data; however they are lacking the format of the original report. Caution should be taken when reading/interpreti ng unformatted reports. Name: ? KALPANA TIPTON ? Accession #: ? [id number] : ? 1965 (Age: 42) ??F ?Collect Date: ? 12/08/2007 Location: ? [facility] ? Receive Date: ? 12/09/2007 Provider: ?CHAYA CHEN MD Copy to: ? Specimen/Source: ?ThinPrep Pap Test, Endocervix, processed on [employer] ThinPrep Imaging System, with manual evaluation Last Menstrual Period: ? current Other: ? Additional clinical information: irregular uterine bleeding HPVA - HPV testing requested if ASC-US on the current ThinPrep Pap test. ? SPECIMEN ADEQUACY ? Satisfactory for Evaluation - transformation zone component present GENERAL CATEGORIZATION ? Negative for Intraepithelial Lesion or Malignancy INTERPRETATION ? Shift in shady present suggestive of bacterial vaginosis. ? Document reviewed and electronically signed by: ? Stefanie Butler, ENRIQUE(ASCP) ? Report Date: ??12/14/2007 12:08 End of Report [facility] 12/08/2007 12/09/2007 Chaya Chen MD PATHOLOGY ORDERABLES Performing Organization Address City/State/[facility] Co de Phone Number [facility] [address] [place] [address] documented in this encounter Visit Diagnoses Not on filedocumented in this encounter Care Teams Felled Seam Operator Relationship Specialty Start Date End Date Lit Mock MD [address] [place] [address] PCP - General 09/03/09 documented as of this encounter
--- OUTSIDE RECORDS SUMMARY | 2024-06-08 14:46 | XMS_ITS | Encounter Summary ---
[place] [address] Care Team Providers Care Radiator Repairer Name Role Phone Lit Mock MD Primary Care Provider [phone] Encounter Details Date Type Department Care Team (Latest Contact Info) Description 12/09/2022 Travel Social History Tobacco Use Types Packs/Day Years Used Date Smoking Tobacco: Never Assessed Sex and Gender Information Value Date Recorded Sex Assigned at Not on file Gender Identity Not on file Sexual Orientation Not on file documented as of this encounter Plan of Treatment Not on file documented as of this encounter Visit Diagnoses Not on filedocumented in this encounter Care Teams Radiator Repairer Relationship Specialty Start Date End Date Lit Mock MD [address] [place] [address] PCP - General 10/01/10 documented as of this encounter
--- OUTSIDE RECORDS SUMMARY | 2024-06-08 14:46 | XMS_ITS | Encounter Summary ---
[place] [address] Care Team Providers Care Glassware Defect Repairer Name Role Phone Lit Mock MD Primary Care Provider [phone] Encounter Details Date Type Department Care Team (Late st Contact Info) Description 05/30/2016 Ancillary Procedure [place] [id number] Lit Mock MD [address] [place], [place] [id number] Social History Tobacco Use Types Packs/Day Years Used Date Smoking Tobacco: Never Assessed Sex and Gender Information Value Date Recorded Sex Assigned at Not on file Gender Identity Not on file Sexual Orientation Not on file documented as of this encounter Plan of Treatment Not on file documented as of this encounter Procedures Procedure Name Priority Date/Time Associated Diagnosis Comments FILM LIBRARY STORAGE ONLY DX HAND Routine 05/30/2016 12:00 AM EDT documented in this encounter Results * Film Library- Storage Only DX Hand (05/30/2016 12:00 AM EDT) Narrative [facility] - 01/28/2023 2:09 PM EDT This exam is auto-finalizing. It's purpose is for storage only. Lit Mock MD IMG FILM LIBRARY ORD ERABLES [place], [place] documented in this encounter Visit Diagnoses Not on filedocumented in this encounter Care Teams Glassware Defect Repairer Relationship Specialty Start Date End Date Lit Mock MD [address] [place] [address] PCP - General 10/01/10 documented as of this encounter
--- OUTSIDE RECORDS SUMMARY | 2024-06-08 14:46 | XMS_ITS | Encounter Summary ---
Author Organization [facility] [place] [address] Care Team Providers Care Shipping And Receiving Coordinator Name Role Phone Lit Mock MD Primary Care Provider [phone] Encounter Details Date Type Department Care Team (Late st Contact Info) Description 01/27/2023 Telephone Dermatology at [facility] [address] [place] [phone] Luci Quintanilla LNA Social History Tobacco Use Types Packs/Day Years Used Date Smoking Tobacco: Never Assessed Sex and Gender Information Value Date Recorded Sex Assigned at Not on file Gender Identity Not on file Sexual Orientation Not on file documented as of this encounter Miscellaneous Notes * Telephone Encounter - Luci Quintanilla LNA - 01/27/2023 9:03 AM EDT Mohs consultation and preoperative note (H&P) Patient Name: Heather Tipton Age: 58 y.o. Date of : 1965 Today's Date: 01/27/2023 REFERRING PROVIDER: Marilyn Ruff MD CC: Mohs micrographic surgery for treatment of a cutaneous tumor HPI: Heather Tipton is a 58 y.o. female presenting for biopsy-proven basal cell carcinoma, nodular infiltrative location on the right chin. The dermatologic preoperative information sheet was reviewed with pertinent positive and negative as below. DERMATOLOGIC PRE-OPERATIVE EVALUATION AND REVIEW OF SYSTEMS History of Mohs surgery? no If yes, have you ever had Mohs surgery with Dr. Natarajan? no Pacemaker/Defibrillator? no Joint replacement or other implantable devices (e.g. Cochlear implant)? If yes then when? yes bilateral hip replacements 2006 Do you take a blood thinner? No History of organ transplant? no History of artificial valve or stroke? no History of liver disease or bleeding disorder? no Do you have any medical problems that may affect your upcoming surgery? no Do you have any concerns regarding your upcoming surgery? no We ask patients to discontinue Fish oil/Multivitamin/Vit E/?? supplements and natural medicines not prescribed by a physician 1 week prior to surgery. SOCIAL HISTORY: Makes Own Decisions Yes Hearing aid or other devices: No Relevant travel history or future plans: no Tobacco use (amount per day, type of tobacco): no Do you have any physical limitations that may affect your surgery?: no ALLERGIES: Allergies reviewed MEDICATIONS: Medications reviewed documented in this encounter Plan of Treatment Not on file documented as of this encounter Visit Diagnoses Not on filedocumented in this encounter Care Teams Shipping And Receiving Coordinator Relationship Specialty Start Date End Date Lit Mock MD [address] [place] [address] PCP - General 10/01/10 documented as of this encounter
--- OUTSIDE RECORDS SUMMARY | 2024-06-08 14:46 | XMS_ITS | Referral Summary ---
Author Organization [facility] Address [address] [place] [address] Care Team Providers Care Work Order Sorting Clerk Name Role Phone Lit Mock MD Primary Care Provider [phone] Social History Tobacco Use Types Packs/Day Years Used Date Smoking Tobacco: Never Assessed Sex and Gender Information Value Date Recorded Sex Assigned at Not on file Gender Identity Not on file Sexual Orientation Not on file Plan of Treatment Not on file Care Teams Work Order Sorting Clerk Relationship Specialty Start Date End Date Lit Mock MD [address] [place] [address] PCP - General 09/03/09
--- OUTSIDE RECORDS SUMMARY | 2024-06-08 14:46 | XMS_ITS | Encounter Summary ---
Author Organization [facility] Address [address] [place] [address] Care Team Providers Care Hospitality House Supervisor Name Role Phone Lit Mock MD Primary Care Provider [phone] Encounter Details Date Type Department Care Team (Late st Contact Info) Description 11/27/2005 Results Only [facility] - [facility] [address] [place] [address] Munir Feldman FNP [address] [place], [place] [address] Social History Tobacco Use Types Packs/Day Years Used Date Smoking Tobacco: Never Assessed Sex and Gender Information Value Date Recorded Sex Assigned at Not on file Gender Identity Not on file Sexual Orientation Not on file documented as of this encounter Plan of Treatment Not on file documented as of this encounter Procedures Procedure Name Priority Date/Time Associated Diagnosis Comments CYTOPATHOLOGY Routine 11/27/2005 0:00 EST documented in this encounter Results * CYTOPATHOLOGY (11/27/2005 0:00 EST) Pathology Report: CYTOPATHOLOGY REPORT Reports generated via electronic interface contain original data; however they are lacking the format of the original report. Caution should be taken when reading/interpreti ng unformatted reports. Name: ? KALPANA TIPTON ? Accession #: ? [id number] : ? 1965 (Age: 40) ??F ?Collect Date: ? 11/27/2005 Location: ? [facility] ? Receive Date: ? 12/02/2005 Provider: ?MUNIR FELDMAN MACADAM RAKER Copy to: ? Specimen/Source: ?ThinPrep Pap Test, Cervix/Endocervix, processed on [employer] ThinPrep Imaging System, with manual evaluation Last Menstrual Period: ? 11/09/05 Other: ? HPVA - HPV testing requested if ASC-US on the current ThinPrep Pap test. ? SPECIMEN ADEQUACY ? Satisfactory for Evaluation - transformation zone component present GENERAL CATEGORIZATION ? Negative for Intraepithelial Lesion or Malignancy INTERPRETATION ? Shift in shady present suggestive of bacterial vaginosis. ? Document reviewed and electronically signed by: ? ENRIQUE Newman(ASCP) ? Report Date: ??12/03/2005 12:27 End of Report [facility] 11/27/2005 12/02/2005 Munir ZAMORAP PATHOLOGY ORDERABLES Performing Organization Address City/State/[facility] Co de Phone Number [facility] [address] [place] [address] documented in this encounter Visit Diagnoses Not on filedocumented in this encounter Care Teams Hospitality House Supervisor Relationship Specialty Start Date End Date Lit Mock MD [address] [place] [address] PCP - General 09/03/09 documented as of this encounter
--- OUTSIDE RECORDS SUMMARY | 2024-06-08 14:46 | XMS_ITS | Clinical Summary ---
Author Organization [place] [address] Care Team Providers Care Instrument Mechanic Name Role Phone Lit Mock MD Primary Care Provider [phone] Allergies Active Allergy Reactions Criticality Noted Date Comments Naproxen Sodium Anaphylaxis High 01/28/2023 Ibuprofen Anaphylaxis High 06/27/2022 Nsaids (Non-Steroidal Anti-I nflammatory Drug) Anaphylaxis High 01/27/2023 Medications Medication Sig Dispensed Refills Start Date End Date Status lisinopriL (Zestril) 20 mg tablet Take 20 mg by mouth daily. Active Social History Tobacco Use Types Packs/Day Years Used Date Smoking Tobacco: Never Assessed Sex and Gender Information Value Date Recorded Sex Assigned at Not on file Gender Identity Not on file Sexual Orientation Not on file Last Filed Vital Signs Vital Sign Reading Time Taken Comments Blood Pressure 136/83 01/28/2023 9:48 AM EDT Pulse 68 01/28/2023 9:48 AM EDT Temperature - - Respiratory Rate - - Oxygen Saturation - - Inhaled Oxygen Concentration - - Weight - - Height - - Body Mass Index - - Plan of Treatment Health Maintenance Due Date Last Done Comments CT Colonography 1965 Colonoscopy 1965 Colorectal Cancer Screening 1965 FIT DNA 1965 FIT 1965 Sigmoidoscopy (10 year) with FIT yearly 1965 Sigmoidoscopy 1965 HIV screen 1983 Hepatitis C Screening 1983 Hepatitis B vaccine (0-59 yrs) (1) 1984 Tdap adult 1984 Tetanus vaccine 1984 HPV test 1995 PAP Smear 1995 Breast Cancer Share Decision Needed 2005 Breast Cancer screening 2005 Zoster vaccine (1 of 2) 2015 Advance Directive 2020 Covid-19 Vaccine ( - 2022-24 season) 2023 Influenza (Flu) vaccine (1 o f 1 - Influenza standard series) 07/10/2024 Care Teams Instrument Mechanic Relationship Specialty Start Date End Date Lit Mock MD [address] [address] PCP - General 10/01/10
--- OUTSIDE RECORDS SUMMARY | 2024-06-08 14:46 | XMS_ITS | Encounter Summary ---
Author Organization [facility] Address [address] [place] [address] Care Team Providers Care Lpn Name Role Phone Lit Mock MD Primary Care Provider [phone] Encounter Details Date Type Department Care Team (Late st Contact Info) Description 01/11/2004 Results Only [facility] - [facility] conversion [address] [place] [address] Lauren Serrano, DEVELOPMENT GEOLOGIST [address] [place] [address] Social History Tobacco Use Types Packs/Day Years Used Date Smoking Tobacco: Never Assessed Sex and Gender Information Value Date Recorded Sex Assigned at Not on file Gender Identity Not on file Sexual Orientation Not on file documented as of this encounter Plan of Treatment Not on file documented as of this encounter Procedures Procedure Name Priority Date/Time Associated Diagnosis Comments CYTOPATHOLOGY Routine 01/11/2004 0:00 EST documented in this encounter Results * CYTOPATHOLOGY (01/11/2004 0:00 EST) Pathology Report: CYTOPATHOLOGY REPORT Reports generated via electronic interface contain original data; however they are lacking the format of the original report. Caution should be taken when reading/interpreti ng unformatted reports. Name: ? KALPANA TIPTON ? Accession #: ? [id number] : ? 1965 (Age: 39) ??F ?Collect Date: ? 01/11/2004 Location: ? [facility] ? Receive Date: ? 01/15/2004 Provider: ?LAUREN SERRANO DEVELOPMENT GEOLOGIST Copy to: ? Specimen/Source: ?ThinPrep Pap Test, Cervix/Endocervix Last Menstrual Period: ? 12/18/03 Other: ? HPVL - HPV testing requested if LSIL/ASCUS/TALI on the current ThinPrep Pap test. ? SPECIMEN ADEQUACY ? Satisfactory for Evaluation - transformation zone component present GENERAL CATEGORIZATION ? Negative for Intraepithelial Lesion or Malignancy ? Document reviewed and electronically signed by: ? Li Mortensen, SCT(ASCP) ? Report Date: ??01/18/2004 10:55 End of Report MIKE THORNE 01/11/2004 01/15/2004 Lauren Serrano NP PATHOLOGY ORDERABLES Performing Organization Address City/State/[facility] Co de Phone Number [facility] THORNE [address] [place] [address] documented in this encounter Visit Diagnoses Not on filedocumented in this encounter Care Teams Lpn Relationship Specialty Start Date End Date Lit Mock MD [address] [place] [address] PCP - General 09/03/09 documented as of this encounter
--- OUTSIDE RECORDS SUMMARY | 2024-06-08 14:46 | XMS_ITS | Encounter Summary ---
[place] [address] Care Team Providers Care Pack Press Operator Name Role Phone Lit Mock MD Primary Care Provider [phone] Encounter Details Date Type Department Care Team (Latest Contact Info) Description 01/28/2023 Travel Social History Tobacco Use Types Packs/Day Years Used Date Smoking Tobacco: Never Assessed Sex and Gender Information Value Date Recorded Sex Assigned at Not on file Gender Identity Not on file Sexual Orientation Not on file documented as of this encounter Plan of Treatment Not on file documented as of this encounter Visit Diagnoses Not on filedocumented in this encounter Care Teams Pack Press Operator Relationship Specialty Start Date End Date Lit Mock MD [address] [place] [address] PCP - General 10/01/10 documented as of this encounter
--- OUTSIDE RECORDS SUMMARY | 2024-06-08 14:46 | XMS_ITS | Encounter Summary ---
Author Organization [facility] Address [facility] [place] [address] Care Team Providers Care Fishing Tackle Repairer Name Role Phone Lit Mock MD Primary Care Provider [phone] Encounter Details Date Type Department Care Team (Late st Contact Info) Description 12/30/2022 Telephone Dermatology at [facility] [address] [place] [address] Marilyn Ruff MD [facility] [place] [address] Social History Tobacco Use Types Packs/Day Years Used Date Smoking Tobacco: Never Assessed Sex and Gender Information Value Date Recorded Sex Assigned at Not on file Gender Identity Not on file Sexual Orientation Not on file documented as of this encounter Miscellaneous Notes * Telephone Encounter - Bridgette Landers LPN - 12/31/2022 9:55 AM EST Patient Heather Tipton called wanting her pathology results. Please call her at [phone]. She knows it would be Thursday before you could call. ?? You may leave a detailed message if she does not answer. ?? Thank you Maria Guadalupe * Telephone Encounter - Irene Peters - 12/30/2022 11:05 AM EST Patient Heather Tipton called wanting her pathology results. Please call her at [phone]. She knows it would be Thursday before you could call. You may leave a detailed message if she does not answer. Thank you Maria Guadalupe documented in this encounter Plan of Treatment Not on file documented as of this encounter Visit Diagnoses Not on filedocumented in this encounter Care Teams Fishing Tackle Repairer Relationship Specialty Start Date End Date Lit Mock MD [address] [place] [address] PCP - General 10/01/10 documented as of this encounter
--- OUTSIDE RECORDS SUMMARY | 2024-06-08 14:46 | XMS_ITS | Encounter Summary ---
Author Organization [facility] [place] [address] Care Team Providers Care Foam Molder Name Role Phone Lit Mock MD Primary Care Provider [phone] Encounter Details Date Type Department Care Team (Late st Contact Info) Description 01/26/[address] [place] [phone] Luci Quintanilla LNA Social History Tobacco Use Types Packs/Day Years Used Date Smoking Tobacco: Never Assessed Sex and Gender Information Value Date Recorded Sex Assigned at Not on file Gender Identity Not on file Sexual Orientation Not on file documented as of this encounter Miscellaneous Notes * Telephone Encounter - Luci Quintanilla LNA - 01/26/2023 3:02 PM EDT Called patient to go over pre op questions prior to surgery on Thursday, unable to speak and will call back later today. documented in this encounter Plan of Treatment Not on file documented as of this encounter Visit Diagnoses Not on filedocumented in this encounter Care Teams Foam Molder Relationship Specialty Start Date End Date Lit Mock MD [address] [place] [address] PCP - General 10/01/10 documented as of this encounter
--- OUTSIDE RECORDS SUMMARY | 2024-06-08 14:46 | XMS_ITS | Encounter Summary ---
[place] [address] Care Team Providers Care Photograph Finisher Name Role Phone Lit Mock MD Primary Care Provider [phone] Encounter Details Date Type Department Care Team (Late st Contact Info) Description 05/25/2022 Ancillary Procedure [place] [address] Lit Mock MD [address] [place], [place] [id number] Social History Tobacco Use Types Packs/Day Years [...] FILM LIBRARY STORAGE ONLY DX HAND Routine 05/25/2022 12:00 AM EDT documented in this encounter Results * Film Library- Storage Only DX Hand (05/25/2022 12:00 AM EDT) Narrative RAD - 01/28/2023 2:09 PM EDT This exam is auto-finalizing. It's purpose is for storage only. Lit Mock MD IMG FILM LIBRARY ORD ERABLES [place], [place] documented in this encounter Visit Diagnoses Not on filedocumented in this encounter Care Teams Photograph Finisher Relationship Specialty Start Date End Date Lit Mock MD [address] [place] [address] PCP - General 10/01/10 documented as of this encounter
--- OUTSIDE RECORDS SUMMARY | 2024-06-08 14:46 | XMS_ITS | Encounter Summary ---
Author Organization [facility] Address [address] [place] [address] Care Team Providers Care Parts Casting Machine Operator Name Role Phone Lit Mock MD Primary Care Provider [phone] Encounter Details Date Type Department Care Team (Late st Contact Info) Description 01/24/2015 Results Only [facility] [address], [place] [id number] Munir Feldman FNP [address] [place], [place] [id number] Social History Tobacco Use Types Packs/Day Years [...] Diagnosis Comments PAP TEST- RESULT ONLY Routine 01/24/2015 0:00 EDT documented in this encounter Results * PAP TEST- RESULT ONLY (01/24/2015 0:00 EDT) Pathology Report: CYTOPATHOLOGY REPORT Reports generated via electronic interface contain original data; however they are lacking the format of the original report. Caution should be taken when reading/interpreti ng unformatted reports. Name: ? KALPANA TIPTON ? Accession #: ? [id number] ? : ? 1965 (Age: 50) ??F ?Collect Date: ? 01/24/2015 ? Location: ? [facility] ? Receive Date: ? 01/26/2015 ? Provider: MUNIR FELDMAN VIDEO GAME DESIGNER Copy to: ? Final Report SPECIMEN ADEQUACY ? Satisfactory for Evaluation - transformation zone component present GENERAL CATEGORIZATION ? Negative for Intraepithelial Lesion or Malignancy ?? Hormonal/Contracep tive status: Intrauterine device: Mirena Specimen/Source: ??Pap Test, Cervix/Endocervix, ThinPrep Imaging System with manual evaluation Document reviewed and electronically signed by: ? Linda Alfaro, ENRIQUE(ASCP)(IAC) ? Report ??Date: 01/31/2015 17:06 HPV with Pap Test ? Date Ordered: ? 01/31/2015 ? Status: ?? Signed Out ?Date Complete: ? 02/02/2015 ? By: ??System Interface ? Date Reported: ? 02/02/2015 ? Interpretation RESULT: Negative for HPV. No E6 or E7 mRNA is detected from HPV types 16,18,31,33,35, 39,45,51,52,56,58, 59,66, and 68 by electrical parts reconditioner mediated amplification. Comments Document reviewed and electronically signed by: ? System Interface ? Report date: 02/02/2015 By the signature above, the attending physician certifies that he/she has personally conducted a gross and/or microscopic examination of the described specimens and rendered or confirmed the above diagnosis. End of Report [facility] 01/24/2015 01/26/2015 Munir Feldman VIDEO GAME DESIGNER PATHOLOGY ORDERABLES [facility] [address] [place] [address] documented in this encounter Visit Diagnoses Not on filedocumented in this encounter Care Teams Parts Casting Machine Operator Relationship Specialty Start Date End Date Lit Mock MD [address] [place] [address] PCP - General 09/03/09 documented as of this encounter
--- OUTSIDE RECORDS SUMMARY | 2024-06-08 14:46 | XMS_ITS | Encounter Summary ---
Author Organization [facility] Address [facility] [place] [address] Care Team Providers Care Linux System Engineer Name Role Phone Lit Mock MD Primary Care Provider [phone] Reason for Visit * Reason Comments Basal Cell Carcinoma * Consultation (Routine) - Closed Specialty Diagnoses / Procedures Referred By Noel da silva Referred To Contact Dermatology Diagnoses Infiltrative basal cell carcinoma (BCC) Marilyn Ruff MD [facility] [place] [address] [facility] [address] AMAIR[address] [place] [address] Referral ID Status Reason Start Date Expiration Date V isits Requested Visits Authorized [id number] Closed Consult, Test & Treat 12/31/2022 12/31/2023 1 1 Encounter Details Date Type Department Care Team (Latest Contact Info) Description 01/28/2023 10:00 AM EDT Procedure visit Dermatology at [facility] [address] [place] [address] [facility] [address] AMAIR[address] [place] [address] Basal cell carcinoma (BCC) of right lower extremity Social History Tobacco Use Types Packs/Day Years Used Date Smoking Tobacco: Never Assessed Sex and Gender Information Value Date Recorded Sex Assigned at Not on file Gender Identity Not on file Sexual Orientation Not on file documented as of this encounter Last Filed Vital Signs Vital Sign Reading Time Taken Comments Blood Pressure 136/83 01/28/2023 9:48 AM EDT Pulse 68 01/28/2023 9:48 AM EDT Temperature - - Respiratory Rate - - Oxygen Saturation - - Inhaled Oxygen Concentration - - Weight - - Height - - Body Mass Index - - documented in this encounter Progress Notes * Humberto Natarajan MD - 01/28/2023 10:00 AM EDT Images from the original note were not included. Summary of Procedure(s): Site: right elkins (surgical site was marked and patient verified site with photograph) Tumor Type: Basal Cell Carcinoma, nodular and infiltrating patterns, ulcerated Stages to clear tumor: 1 Repair: intermediate linear closure Images: The patient was asked to call with any issues and is aware that I am available 01/06 should questions arise. Humberto Natarajan MD Mohs Micrographic Surgery and Dermatologic Oncology Department of Dermatology Please note that I have reviewed the preoperative checklist from today's nursing visit including relevant social history and medications. I have reviewed the preoperative photos if available and the biopsy report. VITAL SIGNS: BP 136/83 (BP Location (NBP): Left arm, Patient Position: Sitting, BP Cuff Sizes: Adult (25-34 cm)) Pulse 68 PHYSICAL EXAMINATION: General: patient is awake, alert, oriented and in no acute distress. Skin: Focused examination of surgical site(s) performed which shows a well healed biopsy site. PHYSICIAN REVIEW OF REPORTS, RECORDS, IMAGES: 1) The accompanying pathology report(s) associated with aforementioned biopsy slide(s) were/was also reviewed. Assessment: Heather Tipton is a 58 y.o. female presenting for: 1. Biopsy-proven basal cell carcinoma, nodular and infiltrating patterns, ulcerated, located on theright elkins. Plan: 1. Findings from the biopsy report, today's clinical exam, and other pertinent details were reviewed with patient today. All questions were answered. 2. Discussed treatment options based on the above findings. We recommended Mohs micrographic surgery for treatment of this tumor. Mohs micrographic surgery was indicated due to patient, site and/or tumor characteristics (see operative report for specific indication). 3. We discussed risks, benefits, and alternative treatment options to the Mohs micrographic surgeryprocedure and pertinent information including but not limited to the following: ?? Risks include bleeding, infection, scar, recurrence, incomplete tumor removal or inability to cure with surgery alone if the tumor features are more aggressive than the initial pathology indicates. Occasionally, additional adjuvant treatments may be recommended. Additional risks include large wound, prolonged wound and healing, pain, swelling, bruising, increased appearance of vessels or worsening erythema of baseline skin; more rarely risks include damage to underlying structures such as nerves, cartilage, or muscle which could lead to temporary or permanent loss of sensation or motor function. ?? Benefit is precise tumor removal ?? If reconstruction is performed, it is specific to the patient and defect. ?? Discussed that the shape, size, depth of the wound is often not known until the tumor is clearedand thus the reconstruction options are sometimes not known until after tumor clearance. Occasionally, referrals to other providers may be recommended for reconstruction based on patient preference and need. ?? Reviewed the pros and cons of common reconstructions used for this tumor type, size, and location, and that reconstruction may lead to change in appearance. ?? Natural history of scar was discussed, including that the scar will continue to mature for 1-2 years. Recommended avoidance of special ointments or scar creams, and avoidance of direct sun exposure to the scar for optimal recovery. ?? Reviewed that there are some aspects of cosmesis that are dependent on patient's characteristicssuch as age, skin laxity/texture factors, inflammatory skin diseases such as rosacea, prior surgery/radiation, degree of actinic damage, smoking status, strength of the patient's immune system, diligent wound care, medications, and genetics. ?? Having Mohs surgery may lead to physical limitations for optimal healing, such as restricted physical activity and heavy lifting. 4. The nature of sun-induced photo-aging and skin cancers was discussed. Recommended sun avoidance when possible, especially peak hours of sun 10 am to 2pm, protective clothing such as wide-brimmed hats and long-sleeved clothing, and the use of SPF broad-spectrum sunscreen SPF 50 or higher. 5. Signs and symptoms of skin cancer reviewed. Patient to report any new, changing, or symptomatic lesions and follow up with his or her port cdl a driver or other skin provider. 6. Discussed avoiding direct sun exposure to scars for best cosmetic result. Note initiated by BARBARA Lee RN has performed the documentation for this encounter in the presence of and acting as a scribe for Dr. Natarajan. I performed the above scribed service and agree with the accuracy of the documentation in this encounter. Reviewed and signed by: Humberto Natarajan MD Dermatology [facility] * Humberto Natarajan MD - 01/28/2023 10:00 AM EDT Mohs micrographic Surgery Operative Report Patient name: Heather Tipton : 1965 Date: 01/28/2023 Staff Surgeon and Pathologist: Humberto Natarajan MD Nursing/Manpower Development Manager(s): Carmela Jackson RN Seo Expert (s): Aury Valadez Caleb Stiller CMA Pre-operative diagnosis: Basal Cell Carcinoma, nodular and infiltrating patterns, ulcerated Post-operative diagnosis: same Location/Site: Right Elkins (surgical site was marked and patient verified site with photograph) Procedure: Mohs micrographic surgery Indication(s) for Mohs micrographic surgery: Anatomic location for tissue conservation Stages: 1 Preoperative size of tumor: 1.0 x 1.0 cm Stage I The nature and purpose of the procedure, associated risks, possible consequences and complications,and alternative forms of treatment were explained in detail. We reviewed the possible repairs basedon the clinical appearance of tumor but discussed that often the repair options may not be known until the tumor has anastasia extirpated. Informed consent and permission to take photographs were obtained. The site was confirmed with the patient/authorized wine sales representative/referring physician and/or a photograph form time of biopsy. A pre-operative time-out (procedural pause) was conducted with no unresolved discrepancies noted. Local anesthesia was obtained with 0.5 % lidocaine with 1:200,000 epinephrine. The surgical site was prepped and draped in the usual sterile manner. A 1-2 mm margin was excised around clinically evident tumor as a complete layer. Hemostasis was achieved by electrocoagulation. The excised tissue was oriented and divided into 2 sections, chromacoded, and submitted for frozen sections. The patient tolerated the procedure well and without complications. On my personal microscopic evaluation of the frozen sections, no residual tumor was identified on the deep or outer border of the sections. The final size of the defect after complete tumor removal was 2.2 x 1.5 cm, extending to level of subcutaneous tissue. Humberto Natarajan MD Mohs Micrographic Surgery and Dermatologic Oncology Department of Dermatology [address] [place] [address] Repair Operative Report Clinical Diagnosis: 2.2 x 1.5 cm surgical defect secondary to Mohs microscopically controlled excision Location/Site: right elkins Indication: repair of wound for anatomic/functional judaism Procedure: Intermediate linear closure of Mohs defect Breaker Operator: Carmela Jackson RN Due to the size and location of the defect resulting from the complete removal of the tumor, the postoperative risk of hemorrhage, infection, and the possibility of serious deformity from scarring, and in order to restore proper function and prevent loss of function, the defect was closed in the following manner. The nature and purpose of the procedure, associated risks, possible consequences, complications andalternative methods of treatment were explained to the patient in detail. An informed consent was obtained. The operative site was anesthetized with 0.5% lidocaine with 1:200,000 epinephrine. The site was prepped and draped in the usual sterile manner. Moderate undermining of the surrounding tissuewas performed for tension free closure as necessary and redundant tissue excised. The deep tissues were apposed and sutured with 3-0 Monocryl sutures and the epidermal edges were approximated with 3-0 Prolene running and/or interrupted sutures. The resulting intermediate linear closure measured 3.4cm. The surgical site was cleaned and white petrolatum with a pressure dressing was applied. The patient tolerated the procedure well and without complications and was given both verbal and written instruction on postoperative wound care. Follow up in two weeks for suture removal. Patient will remove at home. The patient was discharged in good condition. Pre-operative medication: cephalexin (Keflex) 2,000 mg PO once Total local anesthesia with 0.5 % lidocaine with 1:200,000 epinephrine used: 6 cc Humberto Natarajan MD Mohs Micrographic Surgery and Dermatologic Oncology Department of Dermatology [address] [place], [place] [id number] Note initiated by Nai Holley RN. Nai Holley RN has performed the documentation for this encounter in the presence of and acting as a scribe for Dr. Natarajan. I performed the above scribed service and agree with the accuracy of the documentation in this encounter. Reviewed and signed by: Humberto Natarajan Dermatology [facility] documented in this encounter Plan of Treatment Not on file documented as of this encounter Visit Diagnoses Diagnosis Basal cell carcinoma (BCC) of right lower extremity documented in this encounter Administered Medications Inactive Administered Medications - up to 3 most recent administrations Medication Order MAR Action Action Date Dose Rate Site cephALEXin (Keflex) capsule 2,000 mg 2,000 mg, Oral, ONCE, 1 dose, On Thu01/28/23 at 0115, Routine, Indication for (Active or Suspected): Prophylaxis Given 01/28/2023 10:20 AM EDT 2,000 mg documented in this encounter Care Teams Linux System Engineer Relationship Specialty Start Date End Date Lit Mock MD [address] [place] [address] PCP - General 10/01/10 documented as of this encounter
--- OUTSIDE RECORDS SUMMARY | 2024-06-08 14:46 | XMS_ITS | Clinical Summary ---
Author Organization [facility] Address [address] [place] [address] Care Team Providers Care Brokerage Office Manager Name Role Phone Lit Mock MD Primary Care Provider [phone] Social History Tobacco Use Types Packs/Day Years Used Date Smoking Tobacco: Never Assessed Sex and Gender Information Value Date Recorded Sex Assigned at Not on file Gender Identity Not on file Sexual Orientation Not on file Plan of Treatment Health Maintenance Due Date Last Done Comments Hepatitis C Screen 1965 Hepatitis B Vaccine (1 of 3 - 19+ 3-dose series) 01/04 COVID-19 Vaccine (2022- season) 2023 Care Teams Brokerage Office Manager Relationship Specialty Start Date End Date Lit Mock MD [address] [place] [address] PCP - General 09/03/09
--- OUTSIDE RECORDS SUMMARY | 2024-06-08 14:46 | XMS_ITS | Encounter Summary ---
Author Organization [facility] Address [facility] [address] Care Team Providers Care General Worker Name Role Phone Lit Mock MD Primary Care Provider [phone] Encounter Details Date Type Department Care Team (Late st Contact Info) Description 12/31/2022 Telephone Dermatology at [facility] [address] [place] [address] Marilyn Ruff MD [facility] [place] [address] Social History Tobacco Use Types Packs/Day Years Used Date Smoking Tobacco: Never Assessed Sex and Gender Information Value Date Recorded Sex Assigned at Not on file Gender Identity Not on file Sexual Orientation Not on file documented as of this encounter Miscellaneous Notes * Telephone Encounter - Bridgette Landers LPN - 12/31/2022 11:59 AM EST Updated pt on results. She wishes to proceed with mohs and referral was placed. * Telephone Encounter - Li Dias - 12/31/2022 10:02 AM EST Heather Tipton is returning a biopsy call, please reach out to the patient at [phone]. documented in this encounter Plan of Treatment Not on file documented as of this encounter Visit Diagnoses Not on filedocumented in this encounter Care Teams General Worker Relationship Specialty Start Date End Date Lit Mock MD [address] [place] [address] PCP - General 10/01/10 documented as of this encounter
--- OUTSIDE RECORDS SUMMARY | 2024-06-08 14:46 | XMS_ITS | Encounter Summary ---
Author Organization [facility] Address [address] [place] [address] Care Team Providers Care Kosher Inspector Name Role Phone Lit Mock MD Primary Care Provider [phone] Encounter Details Date Type Department Care Team (Late st Contact Info) Description 06/30/2022 Lab Requisition [facility] Pathology & Laboratory Medicine - [address] [address] Ducnan Jarvis, [address] [place], [place] [id number] Encounter for other general examination Social History Tobacco Use Types Packs/Day Years Used Date Smoking Tobacco: Never Assessed Sex and Gender Information Value Date Recorded Sex Assigned at Not on file Gender Identity Not on file Sexual Orientation Not on file documented as of this encounter Plan of Treatment Not on file documented as of this encounter Procedures Procedure Name Priority Date/Time Associated Diagnosis Comments SURGICAL PATHOLOGY Today 06/27/2022 14 :15 EDT documented in this encounter Results * SURGICAL PATHOLOGY (06/27/2022 14:15 EDT) Note to Patient The following pathology results have been interpreted by your pathologist and may be available to you before your health provider has had the opportunity to review them. Please allow time for your provider to receive these results and explore management options, if applicable. 07/01/2022 16:55 EDT [facility] Final Diagnosis A. SKIN OF BACK, LEFT MID, SHAVE BIOPSY: - Melanocytic nevus, junctional lentiginous type, with unusual architectural features and mild cytologic atypia. - Nevus present at deep tissue edge. B. SKIN OF BACK, MIDLINE LOWER, SHAVE BIOPSY: - Melanocytic nevus, compound type, with unusual architectural features and mild cytologic atypia. - Nevus does not extend to edges of shave biopsy specimen in the plane of the sections examined. C. SKIN OF ARM, RIGHT UPPER, SHAVE BIOPSY: - Seborrheic keratosis, pigmented. 07/01/2022 16:55 [facility] Attestation By the signature below, the attending physician certifies that they have 1) personally conducted a gross and/or microscopic examination of the described specimen(s), and/or personally interpreted the results of laboratory testing of the described specimen(s), and 2) personally rendered or confirmed the above diagnosis. 07/01/2022 16:55 [facility] at 1655 Microscopic Description A. The epidermis shows mild hyperplasia consisting of thin and clubbed rete ridges. There is a proliferation of melanocytes within the epidermis that consists of rare nests but is predominated by individual cells in a lentiginous pattern. The nests are small and located at the tips of rete ridges. The individual melanocytes are generally evenly spaced along the dermal-epidermal junction. The melanocytes are slightly enlarged and have dark nuclei. There is abundant melanin pigment within the epidermis, stratum corneum, and dermal melanophages. B. The epidermis is hyperplastic with elongate and anastomosing rete ridges. There is a circumscribed proliferation of melanocytes with epidermal and dermal components. The intraepidermal melanocytes are arranged in nests and as individual cells in a lentiginous pattern. The nests predominate and vary in size, shape, and spacing. Some of the nests bridge between rete ridges. Although the individual melanocytes are unevenly spaced in some areas, they show no tendency toward confluent growth or upward migration. The melanocytes are enlarged and show a mild degree of nuclear size and shape variation. The dermal component consists of nests and cords of similar melanocytes that show surgical supplies sterilizer maturation with descent. There is papillary dermal fibroplasia. C. The stratum corneum is thickened by compact and basketweave orthokeratosis with formation of horn pseudocysts. The epidermis is acanthotic with formation of broad and anastomosing trabeculae. The trabeculae are composed of basaloid keratinocytes with round uniform nuclei. The keratinocytes have a variable amount of melanin pigment. 07/01/2022 16:55 [facility] Clinical History Hypertrophic skin lesions 07/01/2022 16:55 [facility] Gross Description A. Received in formalin labelled with proper patient identification (initials B, D) and 1. Left mid back is a shave biopsy of brown mottled skin (0.9 x 0.8 by less than 0.1 cm). There is a central irregular dark brown macule that measures 0.4 x 0.3 cm. The margin is inked blue, the specimen is trisected and entirely submitted in A1. B. Received in formalin labelled with proper patient identification (initials B, D) and 2. Midline lower back is a shave biopsy of nunez skin (1.0 x 0.8 by less than 0.1 cm). There is an eccentric irregular dark brown macule that measures 0.6 x 0.6 cm. The margin is inked blue, the specimen is trisected and entirely submitted in B1. C. Received in formalin labelled with proper patient identification (initials B, D) and 3. Right upper arm is an irregular shave biopsy of nunez-brown mottled skin (1.2 x 1.1 by less than 0.1 cm). There is a central irregular dark brown scaly papule that measures 1.0 x 0.9 cm. The margin is inked blue, the specimen is quadrisected and entirely submitted in C1-C2. CRISTINA BROWN 07/01/2022 8:48 07/01/2022 16:55 [facility] Performing Lab [facility] 07/01/2022 16:55 [facility] Scanned Images 07/01/2022 16:55 [facility] Tissue TISSUE SPECIMEN FROM SKIN / Unknown 06/27/2022 14:15 EDT 06/30/2022 18:22 EDT Tissue specimen (specimen) SPECIMEN FROM SKIN / Unknown 06/27/2022 14:15 EDT 06/30/2022 18:22 EDT Tissue specimen (specimen) SPECIMEN FROM SKIN / Unknown 06/27/2022 14:15 EDT 06/30/2022 18:22 EDT Duncan Jarvis DO PATHOLOGY ORDER [facility] [address] [place] [address] documented in this encounter Visit Diagnoses Diagnosis Encounter for other general examination documented in this encounter Care Teams Kosher Inspector Relationship Specialty Start Date End Date Lit Mock MD [address] [place] [address] PCP - General 09/03/09 documented as of this encounter
--- OUTSIDE RECORDS SUMMARY | 2024-06-08 14:46 | XMS_ITS | Encounter Summary ---
Author Organization [facility] Address [address] [place] [address] Care Team Providers Care Radiation Therapist Name Role Phone Lit Mock MD Primary Care Provider [phone] Encounter Details Date Type Department Care Team (Late st Contact Info) Description 06/30/2022 Lab Requisition [facility] Pathology & Laboratory Medicine - [address] [address] Carole Silver, DO [address] [facility] [facility] [address] [place], [place] [address] Encounter for other general examination Social History [...] Date/Time Associated Diagnosis Comments SURGICAL PATHOLOGY Today 06/30/2022 14 :05 EDT Encounter for other general examination documented in this encounter Results * SURGICAL PATHOLOGY (06/30/2022 14:05 EDT) Note to Patient The following pathology results have been interpreted by your pathologist and may be available to you before your health provider has had the opportunity to review them. Please allow time for your provider to receive these results and explore management options, if applicable. 07/04/2022 12:02 EDT [facility] Final Diagnosis A. SKIN OF THIGH, LEFT INNER, EXCISION: - Melanocytic nevus, junctional type, with unusual architectural features and mild cytologic atypia. - Margins of excision negative. 07/04/2022 12:02 [facility] Attestation By the signature below, the attending physician certifies that they have 1) personally conducted a gross and/or microscopic examination of the described specimen(s), and/or personally interpreted the results of laboratory testing of the described specimen(s), and 2) personally rendered or confirmed the above diagnosis. 07/04/2022 12:02 [facility] at 1202 Microscopic Description The epidermis is hyperplastic with elongate and anastomosing rete ridges. There is a circumscribed proliferation of melanocytes within the epidermis that consists of nests and individual cells in a lentiginous pattern. The nests vary in size, shape, and spacing. Some of the nests bridge between rete ridges. Although the individual melanocytes are unevenly spaced in some areas, they show no tendency toward confluent growth or upward migration. The melanocytes are enlarged and show a mild degree of nuclear size and shape variation. There is papillary dermal fibroplasia.SOX-10 ALK PHOS (SP267, [employer]) performed on blocks A2 and A3 do not show definitive evidence of well-developed confluent growth and upper migration. Additional sections have been reviewed on blocks A2 and A3. NOTE: One or more of the reagents used in immunoperoxidase testing in this case may not have been cleared or approved by the U.S. Food and Drug Administration (FDA). The FDA has determined that such clearance or approval is not necessary. These tests are used for clinical purposes. They should not be regarded as investigational or for research. These reagents' performance characteristics have been determined by [facility] and/or by the referring laboratory. The positive and negative controls worked appropriately. If immunoperoxidase staining has been performed on alcohol fixed cytology specimens, which has not been fully validated, the assays should be interpreted with caution and correlated with clinical data. This laboratory is certified under the Clinical Laboratory Improvement Amendments of 1988 (CLIA-88) as qualified to perform high complexity clinical laboratory testing.? 07/04/2022 12:02 [facility] Clinical History Skin lesion L inner thigh 07/04/2022 12:02 EDT [facility] Gross Description A. Received in formalin labelled with proper patient identification (initials B, D) and L inner thigh is an oriented elliptical excision of nunez-brown hair-bearing rubbery skin with a suture designating 12 o'clock, (1.9 cm from 12 o'clock to 6 o'clock, 1.3 cm from 3 o'clock to 9 o'clock, and is excised to a depth of 0.3 cm). There is a central irregular dark brown macule that measures (0.8 x 0.6 cm). The 3 o'clock margin is inked blue and the 9 o'clock margin is inked black. The specimen is serially sectioned from 12 o'clock to 6 o'clock and is entirely submitted as follows: BLOCK ANGUIANO A1- 12 o'clock tip, reverse en face A2-A3- 6 central sections A4- 6 o'clock tip, reverse en face CRISTINA BROWN 07/01/2022 10:17 07/04/2022 12:02 EDT [facility] Performing Lab [facility] 12:02 EDT [facility] Scanned Images 07/04/2022 12:02 T [facility] Tissue TISSUE SPECIMEN FROM SKIN / Unknown 06/30/2022 14:05 EDT 06/30/2022 22:44 EDT Carole Silver DO PATHOLOGY ORDERABLES [facility] [address] [place] [address] documented in this encounter Visit Diagnoses Diagnosis Encounter for other general examination documented in this encounter Care Teams Radiation Therapist Relationship Specialty Start Date End Date Lit Mock MD [address] [place] [address] PCP - General 09/03/09 documented as of this encounter
--- OUTSIDE RECORDS SUMMARY | 2024-06-08 14:46 | XMS_ITS | Encounter Summary ---
[place] [address] Care Team Providers Care Financial Foundations Representative Name Role Phone Lit Mock MD Primary Care Provider [phone] Encounter Details Date Type Department Care Team (Late st Contact Info) Description 01/19/2023 Ancillary Procedure [place] [phone] Lit Mock MD [address] [place], [place] [id number] Social History Tobacco Use Types Packs/Day Years [...] FILM LIBRARY STORAGE ONLY DX HAND Routine 01/19/2023 12:00 AM EDT documented in this encounter Results * Film Library- Storage Only DX Hand (01/19/2023 12:00 AM EDT) Narrative RAD - 01/28/2023 2:10 PM EDT This exam is auto-finalizing. It's purpose is for storage only. Lit Mock MD IMG FILM LIBRARY ORD ERABLES [place], [place] documented in this encounter Visit Diagnoses Not on filedocumented in this encounter Care Teams Financial Foundations Representative Relationship Specialty Start Date End Date Lit Mock MD [address] [place] [address] PCP - General 10/01/10 documented as of this encounter
--- OUTSIDE RECORDS SUMMARY | 2024-06-08 14:46 | XMS_ITS | Encounter Summary ---
Author Organization [facility] Address [address] [place] [address] Care Team Providers Care Jalousie Installer Name Role Phone Lit Mock MD Primary Care Provider [phone] Encounter Details Date Type Department Care Team (Late st Contact Info) Description 02/16/2019 Results Only [facility] [phone] Kelli Ansari, [address] [place] [phone] Social History Tobacco Use Types Packs/Day Years [...] Diagnosis Comments PAP TEST- RESULT ONLY Routine 02/22/2019 0:00 EDT documented in this encounter Results * PAP TEST- RESULT ONLY (02/22/2019 0:00 EDT) Pathology Report: CYTOPATHOLOGY REPORT Reports generated via electronic interface contain original data; however they are lacking the format of the original report. Caution should be taken when reading/interpreti ng unformatted reports. Name: ? KALPANA TIPTON ? Accession #: ? [id number] ? : ? 1965 (Age: 54) ??F ?Collect Date: ? 02/22/2019 ? Location: ? [facility] ? Receive Date: ? 02/23/2019 ? Provider: KELLI ANSARI [facility] Copy to: LIT MOCK MD ? Final Report SPECIMEN ADEQUACY ? Satisfactory for Evaluation - transformation zone component present - scant squamous epithelial component secondary to excessive blood GENERAL CATEGORIZATION ? Negative for Intraepithelial Lesion or Malignancy ?? Last Menstrual Period: 2008 Hormonal/Contracep tive status: Intrauterine device Specimen/Source: ??Pap Test, Cervix, ThinPrep Imaging System with manual evaluation Document reviewed and electronically signed by: ? ENRIQUE Antoine(ASCP) ? Report ??Date: 02/25/2019 15:34 HPV with Pap Test ? Date Ordered: ? 02/25/2019 ? Status: ?? Signed Out ?Date Complete: ? 02/28/2019 ? By: ??System Interface ? Date Reported: ? 02/28/2019 ? Interpretation RESULT: Negative for HPV. No E6 or E7 mRNA is detected from HPV types 16,18,31,33,35, 39,45,51,52,56,58, 59,66, and 68 by cartoon artist mediated amplification. Comments Document reviewed and electronically signed by: ? System Interface ? Report date: 02/28/2019 By the signature above, the attending physician certifies that he/she has personally conducted a gross and/or microscopic examination of the described specimens and rendered or confirmed the above diagnosis. End of Report [facility] 02/22/2019 02/23/2019 Kelli Ansari [facility]ICI[facility] PATHOLOGY ORDERABLES [facility] [address] [place] [address] documented in this encounter Visit Diagnoses Not on filedocumented in this encounter Care Teams Jalousie Installer Relationship Specialty Start Date End Date Lit Mock MD [address] [place] [address] PCP - General 09/03/09 documented as of this encounter
--- OUTSIDE RECORDS SUMMARY | 2024-06-08 14:46 | XMS_ITS | Encounter Summary ---
Author Organization [facility] Address [address] [place] [address] Care Team Providers Care Cpr Instructor Name Role Phone Unavailable Primary Care Provider Unavailabl e Encounter Details Date Type Department Care Team (Late st Contact Info) Description 08/29/2009 Orders Only [facility] [phone] Milton Miller MD [address] [place] [address] Social History Tobacco Use Types Packs/Day Years Used Date Smoking Tobacco: Never Assessed Sex and Gender Information Value Date Recorded Sex Assigned at Not on file Gender Identity Not on file Sexual Orientation Not on file documented as of this encounter Plan of Treatment Not on file documented as of this encounter Procedures Procedure Name Priority Date/Time Associated Diagnosis Comments SURGICAL PATHOLOGY Routine 08/29/2009 0:00 EDT documented in this encounter Results * SURGICAL PATHOLOGY (08/29/2009 0:00 EDT) Pathology Report: SURGICAL PATHOLOGY REPORT ? Reports generated via electronic interface contain original data; ? however they are lacking the format of the original report. ? Caution should be taken when reading/interpreting unformatted reports. ? Name: ? TIPTON, KALPANA M ? Accession #: ? [id number] ? : ? 1965 (Age: 44) ??F ? Collect Date: ? 08/29/2009 ? Location: ? [facility] ? Receive Date: ? 08/30/2009 ? Provider: MILTON S OTTO MD ? Copy to: MYNOR LEMUS MD ? Final Pathologic Diagnosis: ? Endometrium, curettings: ? 1. ??Menstrual endometrium. ??See comment. ? 2. ??Fragments of smooth muscle. ? 3. ??Lower uterine segment. ? 4. ??Benign endocervical tissue and mature appearing squamous mucosa. ? Comment: ? Body Presser sections were shown at intradepartmental consultation ? conference on September 03, 2009. (Dr. Spaulding)/mpl ? Document reviewed and electronically signed by: ? Mallory Spaulding MD ? Report ??Date: 09/03/2009 16:54 ? By the signature above, the attending physician certifies that he/she has ? personally conducted a gross and/or microscopic examination of the described ? specimens and rendered or confirmed the above diagnosis. ? Specimen(s) Received: ? Endometrial curettings ? Clinical History: ? Menorrhagia to anemia, Hgb 6.7 ? Gross Description: ? Received in formalin labelled Tipton, Kalpana and endometrial curettings is a 4.5 x 2.5 x 2.3 cm aggregate of red-nunez, hemorrhagic tissue fragments ? admixed with clotted blood. ??The specimen is filtered and entirely submitted as (A1) to (A7). ??(Ryan Jefferson)/[facility] ? End of Report ? [facility] 08/29/2009 08/30/2009 6:5 4 EDT Milton Miller MD PATHOLOGY ORDERABLES Performing Organization Address City/State/[facility] Co de Phone Number [facility] [address] [place] [address] documented in this encounter Visit Diagnoses Not on filedocumented in this encounter
--- OUTSIDE RECORDS SUMMARY | 2024-06-08 14:46 | XMS_ITS | Encounter Summary ---
Author Organization [facility] Address [address] [place] [address] Care Team Providers Care Pharmacovigilance Scientist Name Role Phone Lit Mock MD Primary Care Provider [phone] Encounter Details Date Type Department Care Team (Late st Contact Info) Description 06/11/2022 Lab Requisition [facility] Pathology & Laboratory Medicine - [address] [address] Carole Silver, DO [address] [facility] [facility] [address] [address] [place], [place] [id number] Encounter for screening for malignant neoplasm of colon Social History Tobacco Use Types Packs/Day Years Used Date Smoking Tobacco: Never Assessed Sex and Gender Information Value Date Recorded Sex Assigned at Not on file Gender Identity Not on file Sexual Orientation Not on file documented as of this encounter Plan of Treatment Not on file documented as of this encounter Procedures Procedure Name Priority Date/Time Associated Diagnosis Comments SURGICAL PATHOLOGY Today 06/10/2022 13 :13 EDT Encounter for screening for malignant neoplasm of colon documented in this encounter Results * SURGICAL PATHOLOGY (06/10/2022 13:13 EDT) Note to Patient The following pathology results have been interpreted by your pathologist and may be available to you before your health provider has had the opportunity to review them. Please allow time for your provider to receive these results and explore management options, if applicable. 06/12/2022 9:41 EDT [facility] Final Diagnosis A. COLON, 30 CM, POLYP, BIOPSY: - Hyperplastic polyp. 06/12/2022 9:41 [facility] Attestation By the signature below, the attending physician certifies that they have 1) personally conducted a gross and/or microscopic examination of the described specimen(s), and/or personally interpreted the results of laboratory testing of the described specimen(s), and 2) personally rendered or confirmed the above diagnosis. 06/12/2022 9:41 [facility] at 0941 Clinical History Screening, minor tics 06/12/2022 9:41 [facility] Gross Description A. Received in formalin labelled with proper patient identification (initials B, D) and 30 cm polyp is a single fragment of nunez tissue (0.2 x 0.2 x 0.2 cm). The specimen is submitted entirely in A1. TORRI CARTY(ASCP) 06/11/2022 7:45 06/12/2022 9:41 [facility] Performing Lab [facility] 06/12/2022 9:41 [facility] Scanned Images 06/12/2022 9:41 [facility] Tissue ENTIRE COLON / Unknown 06/10/2022 13:13 EDT 06/11/2022 6:08 EDT Carole Silver DO PATHOLOGY ORDERABLES Performing Organization Address City/State/[facility] Co de Phone Number [facility] [address] [place] [address] documented in this encounter Visit Diagnoses Diagnosis Encounter for screening for malignant neoplasm of colon Special screening for malignant neoplasms, colon documented in this encounter Care Teams Pharmacovigilance Scientist Relationship Specialty Start Date End Date Lit Mock MD [address] [place] [address] PCP - General 09/03/09 documented as of this encounter
--- OUTSIDE RECORDS SUMMARY | 2024-06-08 14:46 | XMS_ITS | Encounter Summary ---
Author Organization [facility] Address [facility] [place] [address] Care Team Providers Care Stock Patcher Name Role Phone Lit Mock MD Primary Care Provider [phone] Reason for Visit * Reason Comments Basal Cell Carcinoma Encounter Details Date Type Department Care Team (Latest Contact Info) Description 01/28/2023 9:45 AM EDT Clinical Support Dermatology at [facility] [address] [place] [address] Humberto Natarajan MD [facility] [address] [place] [address] Basal cell carcinoma (BCC) of right lower extremity Social History Tobacco Use Types Packs/Day Years Used Date Smoking Tobacco: Never Assessed Sex and Gender Information Value Date Recorded Sex Assigned at Not on file Gender Identity Not on file Sexual Orientation Not on file documented as of this encounter Progress Notes * Carmela Jackson RN - 01/28/2023 9:45 AM EDT Mohs consultation and preoperative note (H&P) Patient Name: Heather Tipton Age: 58 y.o. Date of : 1965 Today's Date: 01/28/2023 REFERRING PROVIDER: Marilyn Ruff MD CC: Mohs micrographic surgery for treatment of a cutaneous tumor HPI: Heather Tipton is a 58 y.o. female presenting for biopsy-proven basal cell carcinoma, nodular and infiltrating patterns, ulcerated, location on the right wood. The dermatologic preoperative information sheet was reviewed with pertinent positive and negative as below. DERMATOLOGIC PRE-OPERATIVE EVALUATION AND REVIEW OF SYSTEMS History of Mohs surgery? no Pacemaker/Defibrillator? no Joint replacement or other implantable devices (e.g. Cochlear implant)? If yes then when? yes bilateral hip replacements 2005, does take Keflex prior to dental work Do you take a blood thinner? No History of organ transplant? no History of artificial valve or stroke? no History of liver disease or bleeding disorder? no Do you have any medical problems that may affect your upcoming surgery? no Do you have any concerns regarding your upcoming surgery? no SOCIAL HISTORY: Makes Own Decisions: Yes Hearing aid or other devices: No [...] right lower extremity documented in this encounter Care Teams Stock Patcher Relationship Specialty Start Date End Date Lti Mock MD [address] [place] [address] PCP - General 10/01/10 documented as of this encounter
--- OUTSIDE RECORDS SUMMARY | 2024-06-08 14:46 | XMS_ITS | Encounter Summary ---
Author Organization [facility] Address [facility] [place] [address] Care Team Providers Care Creative Guru Name Role Phone Lit Mokc MD Primary Care Provider [phone] Reason for Referral * Consultation (Routine) - Closed Specialty Diagnoses / Procedures Referred By Noel da silva Referred To Contact Dermatology Diagnoses Infiltrative basal cell carcinoma (BCC) Marilyn Ruff MD [facility] [place] [address] Humberto Natarajan MD [facility] [place] [address] Referral ID Status Reason Start Date Expiration Date V isits Requested Visits Authorized [id number] Closed Consult, Test & Treat 12/31/2022 12/31/2023 1 1 Encounter Details Date Type Department Care Team (Late st Contact Info) Description 12/31/2022 Orders Only Dermatology at [facility] [address] [place] [address] Marilyn Ruff MD [facility] [place] [address] Infiltrative basal cell carcinoma (BCC) Social History Tobacco Use Types Packs/Day Years Used Date Smoking Tobacco: Never Assessed Sex and Gender Information Value Date Recorded Sex Assigned at Not on file Gender Identity Not on file Sexual Orientation Not on file documented as of this encounter Plan of Treatment Scheduled Referrals Name Type Priority Associated Diagnoses Order Schedule Referral to Dermatology Outpatient Referral Routine Infiltrative basal cell carcinoma (BCC) Ordered: 12/31/2022 documented as of this encounter Visit Diagnoses Diagnosis Infiltrative basal cell carcinoma (BCC) documented in this encounter Care Teams Creative Guru Relationship Specialty Start Date End Date Lit Mock MD [address] [place] [address] PCP - General 10/01/10 documented as of this encounter
--- OUTSIDE RECORDS SUMMARY | 2024-06-08 14:46 | XMS_ITS | Encounter Summary ---
Author Organization [facility] Address [facility] [place] [address] Care Team Providers Care Hedge Trimmer Name Role Phone Lit Mock MD Primary Care Provider [phone] Reason for Visit * Consultation (Routine) - Closed Specialty Diagnoses / Procedures Referred By Noel da silva Referred To Contact Dermatology Diagnoses History of skin cancer Erendira Edwards APRN [address] [place] [address] [facility] Dermatology [address] [place] [address] Referral ID Status Reason Start Date Expiration Date V isits Requested Visits Authorized [id number] Closed Consult, Test & Treat PCP Updated and/or Approved 09/26/2022 09/26/2023 6 6 Encounter Details Date Type Department Care Team (Late st Contact Info) Description 12/09/2022 9:00 AM EST Office Visit Dermatology at [address] [place] [address] Marilyn Ruff MD [facility] [place] [address] [address] History of dysplastic nevus; Skin cancer screening; Family history of melanoma; Seborrheic keratoses; Melanocytic nevus, unspecified location; Perez angioma; Lentigines; Inflamed seborrheic keratosis; Neoplasm of unspecified behavior of bone, soft tissue, and skin Social History Tobacco Use Types Packs/Day Years Used Date Smoking Tobacco: Never Assessed Sex and Gender Information Value Date Recorded Sex Assigned at Not on file Gender Identity Not on file Sexual Orientation Not on file documented as of this encounter Progress Notes * Marilyn Ruff MD - 12/09/2022 9:00 AM EST Images from the original note were not included. DEPARTMENT OF DERMATOLOGY [facility] Provider: Marilyn Ruff MD Patient's preferred name Heather Preferred contact method for results [x]Phone: Cell []myD-H []Letter Detailed phone message OK? Yes Are there any other people with whom we may discuss your care? Pedro Vazquez Past Medical History Date, location, treatment Melanoma N Dysplastic nevi - Left inner thigh: mildly atypical nevus - Left mid back: mildly atypical nevus - Midline lower back: mildly atypical nevus SCC N BCC N AKs N UV Exposure & Protection N - Right upper arm: Hx of biopsy - SK Family History Details Melanoma Mother - pt believes was melanoma NMSC N Other relevant family history N Social History Occupation: Hobbies: Other: Pre-Procedure Screening Details Allergy to lidocaine, epinephrine, Dermabond, chlorhexidine, or adhesives N Bleeding disorder or blood thinners N Pacemaker, defibrillator, deep brain stimulator, cochlear implant N History of Present Illness: Heather Tipton is a 57 y.o. Patient is referred to the clinic at the request of Erendira Edwards for a full skin cancer screening: - Skin tag on neck line and middle of back that are irritating. - Hx of 4 spots removed. Recently biopsied by vice president talent management in [facility]. Review of Systems: General: Feeling well. Skin: No other skin concerns. Medications: Reviewed in eD-H Allergies: Reviewed in eD-H Skin Examination: Full skin examination: Patient asked to undress to their comfort level. Verbalized that the provider's preference is that patient remove all clothing and that the provider will not examine areas patient elects to keep covered. Examination of the scalp, hair, head, face, ears, neck, chest, axillae, abdomen, back, buttocks, and upper and lower extremities was normal with the exception of the findings below. Genitalia not examined. Assessment/Plan #. History of DN - Well-healed scars per skin history. - Midline lower back: recurrent mild atypical nevus in scar (photo taken; figure 3-4) - will continue to monitor. # Neoplasm of unspecified behavior of skin - DDx: BCC vs SCC vs ISK-1cm pink crusted plaque on the right wood (figure 1-2) - Joint decision to pursue shave biopsy today to clarify nature of lesion - Shave biopsy procedure note: Location: Right wood The patient's consent was obtained. Risk of incomplete removal, scarring, bleeding, infection, and pain were reviewed. Alcohol preparation was used. Anesthesia was obtained with 1.0% lidocaine with epinephrine. A shave biopsy was obtained and the specimen was sent to pathology for histologic evaluation. Hemostasis was obtained with AlCl and/or electrocautery. Vaseline and bandage were applied. Wound care was reviewed. There were no complications; the patient tolerated the procedure well. #. Inflamed Seborrheic Keratosis - Inflamed, stuck on, waxy papule on the right neck (x1) - Discussed benign nature of lesion(s) and provided reassurance. - Due to irritation present on today's exam and history of symptoms, discussed removal with cryotherapy. - Patient elects to proceed with cryotherapy today. Procedure: Destruction of lesion(s) with cryotherapy (LN2). Location(s): As noted above Number: 1 Discussed procedure and expectations including risks and benefits. Verbal consent obtained. Treatedwith LN2. There were no complications; Patient tolerated the procedure well. Post-procedure expectations and wound care were reviewed. # Solar lentigines - 0.3-0.6cm light-brown evenly pigmented, well-demarcated macules in a photodistributed pattern on the face, trunk and extremities. - Discussed warning signs of skin cancer # Seborrheic keratoses - nunez/brown waxy stuck-on papules and plaques on the trunk and extremities. - Reassured of the benign nature of these lesions - No treatment needed - Right upper arm: Biopsy proven SK. Briefly discussed ILK injections to offer relief for hypertrophic scar. Pt declines at this time but will consider if symptoms persist/worsen # Melanocytic nevi - Scattered medium-brown macules and papules on the head, trunk, and extremities. - Morphology reassuring for benign nevi. - Reassured of benign appearance on exam today - Will continue to monitor. # Perze angiomas - scattered on the trunk and extremities are bright red smooth papules. - Reassured of the benign nature of these lesions. No treatment needed. Figure 1 Figure 2 Figure 3 Figure 4 Photo(s) taken and charted with patient's verbal consent. Other: ??? N/A RTC: Pending pathology otherwise 1 year for FSE, return sooner as needed []Note routed to confidential secretary [x]Recall placed in scheduling system []Appointment scheduled at checkout Scribe attestation: Crystal Cleveland and Rozina Artis [facility]ITAL[facility]ón has performed the documentation for this encounter in the presence of and acting as a scribe for Marilyn Ruff MD. I performed the above scribed service and agree with the accuracy of the documentation in this encounter. Reviewed and signed by: Marilyn Ruff MD Dermatology [facility] * Marilyn Ruff MD - 12/09/2022 9:00 AM EST Skin biopsy results reviewed. Recommend surgical removal of this infiltrative BCC. Meets criteria for Mohs surgery; alternatively could consider excision. [id number] ? Location: [facility] The signing pathologist has (i) examined the relevant preparation(s) for the specimen(s) and (ii) rendered or confirmed the diagnosis(es). ? Surgical Pathology DIAGNOSIS Right wood, skin shave biopsy: - ??Basal cell carcinoma, ??nodular and infiltrating patterns, ulcerated, ?? present at the ??peripheral and deep specimen edges documented in this encounter Plan of Treatment Not on file documented as of this encounter Procedures Procedure Name Priority Date/Time Associated Diagnosis Comments SPECIMEN TO PATHOLOGY Routine 12/09/2022 9:39 AM EST Neoplasm of unspecified behavior of bone, soft tissue, and skin SURGICAL PATHOLOGY REPORT Routine 12/09/2022 9:31 AM EST documented in this encounter Results * Specimen to Pathology (12/09/2022 9:39 AM EST) AP Specimen 12/09/2022 9:39 AM EST 12/09/2022 9:39 AM EST Narrative [facility] - 12/09/2022 9:39 AM EST Specimen requisition ordered. ??Separate Pathology report to follow Marilyn Ruff MD PATHOLOGY/CYTOLOGY Ki GARCIA [facility] [place] [address] * (ABNORMAL) Surgical Pathology Report (12/09/2022 9:31 AM EST) FINAL DIAGNOSIS (AP) [id number] ? Location: [facility] The signing pathologist has (i) examined the relevant preparation(s) for the specimen(s) and (ii) rendered or confirmed the diagnosis(es). . ?Surgical Pathology DIAGNOSIS Right wood, skin shave biopsy: - ??Basal cell carcinoma, ??nodular and infiltrating patterns, ulcerated, ?? present at the peripheral and deep specimen edges Electronically signed by: ?Saud NOLAND, PhD, Estela Verified: ??12/15/2022 13:50 ??Dermatopatholo gist Performed at: ??-[facility] Dept. of Pathology, [place] [address] Senior Clinical Research Scientist: Leeann Sims MD, FCAP, ??CLIA Certificate: [id number] DISCUSSION THIS RESULT REQUIRES PHYSICIAN/A.P.P. FOLLOW UP SPECIMEN(S) SUBMITTED A - Right wood, skin shave biopsy (1) CLINICAL INFORMATION D BX: BCC versus SCC versus IFK-1 cm pink crusted plaque on the right wood. SPECIMEN PROCESSING A - Labeled/Fixative : Patient demographics, formalin. Quantity/Size: ??Single, 0.7 x 0.5 x 0.1 cm. Tissue Description: Scott-white skin shave with a 0.6 x 0.4 cm ill-defined nunez-pink papule. Sections/Process ing: Inked, trisected and entirely submitted in 1 cassette labeled A1. ??jnr(A) 12/15/2022 1:50 PM EST [facility] SPECIMEN FROM SKIN / Unknown 12/09/2022 9:31 AM EST 12/09/2022 9:31 AM EST Marilyn Ruff MD PATHOLOGY/CYTOLOGY O RDERABLES [facility] [place] [phone] documented in this encounter Visit Diagnoses Diagnosis History of dysplastic nevus Personal history of diseases of skin and subcutaneous tissue Skin cancer screening Screening for malignant neoplasm of the skin Family history of melanoma Family history of other specified malignant neoplasm Seborrheic keratoses Melanocytic nevus, unspecified location Perez angioma Nevus, non-neoplastic Lentigines Other dyschromia Inflamed seborrheic keratosis Neoplasm of unspecified behavior of bone, soft tissue, and skin documented in this encounter Care Teams Hedge Trimmer Relationship Specialty Start Date End Date Lit Mock MD [address] [place] [id number] PCP - General 10/01/10 documented as of this encounter
[2024-06-08 15:47] LABS: Abs Immature Grans 0.03 10^3/uL (0.0-0.06); Absolute Basophil Count 0.06 10^3/uL (0.0-0.2); Absolute Eosinophil Count 0.12 10^3/uL (0.0-0.7); Absolute Lymphocyte Count 2.14 10^3/uL (1.2-3.4); Absolute Neutrophil Count 3.72 10^3/uL (1.2-6.7); Basophils % 0.9 %; Eosinophils % 1.9 %; HCT 45.4 % (36.0-46.0); HGB 14.4 g/dL (11.2-15.7); Immature Grans % 0.5 %; Lymphocytes % 33.1 %; MCHC 31.7 % (32.0-36.0); MCV 85 fL (80-95); Monocytes % 6.2 %; Neutrophils % 57.4 %; Platelet Count 225 10^3/uL (130-400); RBC 5.34 10^6/uL (3.93-5.22); RDW 12.9 % (11.7-14.6); RDW-SD 39.7 fL; WBC 6.47 10^3/uL (4.4-10.8)
[2024-06-08 15:53] LABS: ESR 48 mm/hr (0-30)
[2024-06-08 16:13] LABS: C-Reactive Protein 0.81 mg/dL (<or=0.5)
[2024-06-08 22:17] LABS: Rheumatoid Factor <8.6 IU/mL (<12.0)
[2024-06-09 14:32] LABS: ANA Interpretation Negative (Negative)
== END 2024-06-08 14:43 | disposition home or self-care (01) ==
LOC: NCHCN 14:42
PROVIDERS: PCP Family Medicine; Visit Provider Family Medicine
DX: M25.50 Pain in unspecified joint (principal)
CPT/HCPCS: 85652; 85025; 86038; 86140; 86431

== ENCOUNTER 2025-03-01 13:52 | Outpatient (REF) | payer BC, SELFPAY ==
--- NOTE | 2025-03-01 08:30 | PAPFT_PTH ---
PATIENT: Heather Tipton LOC: [facility]#:[id number] AGE/SX: 60/F ROOM: RE03/01/[address]: Ana Fulton : 1965 BED: DIS: 03/01/2025 SPEC #: [id number] RECD: 03/01/25 17:36 STATUS: ZEYAD REDominic #: [id number] BANG: 03/01/25 08:[address]: Ana Fulton DEPT: [facility] Cytology RECD BY: Camila Gutiérrez Tissues: 1 - CX/ENDOCX FOR PAP SMEARS Procedures: PAP THIN PREP/[facility] Screening HPV DNA PROBE Comments: [id number] (HPV 16 & 18/45)
== END 2025-03-01 13:53 | disposition home or self-care (01) ==
LOC: NCHCN 13:52
PROVIDERS: PCP Family Medicine; Visit Provider Family Medicine
DX: Z12.4 Encounter for screening for malignant neoplasm of cervix (principal)
CPT/HCPCS: 88142; 87624

== ENCOUNTER → 2025-10-06 01:56 | Outpatient (CLI) | payer BC, SELFPAY ==
--- NOTE | 2025-10-06 12:13 | DI.MAMMO_ITS ---
Exam(s) MAMMO SCREENING EXAM: MAMMO SCREENING CLINICAL HISTORY: SCREENING MAMMO Z12.31 TECHNIQUE: Mammograms were interpreted according to the usual protocol including computer analysis with CAD system, tomosynthesis and C-view imaging. COMPARISON: 2019 and 2021 FINDINGS: The breasts are composed of scattered fibroglandular densities, Breast Density category B. No suspicious masses or suspicious microcalcifications are seen. Benign calcifications are again noted bilaterally. No skin thickening or abnormal axillary lymph nodes are seen. There has been no significant change from prior exams. IMPRESSION: BI-RADS Category 1, Negative mammogram Yearly screening mammography is recommended. Breast Density - Category B - There are scattered areas of fibroglandular density. Breast density Category C or D implies that the patient has dense breast tissue. Dense breast tissue can make it harder to find cancer on a mammogram. Dense breast tissue is also associated with an increased risk of breast cancer. This information about the result of the mammogram report was provided to the patient to raise their awareness. Use this report when you speak with the patient about their risks for breast cancer, which includes their family history. At that time, you may recommend additional screening tests (Ultrasound or MRI) as these tests may add significant information. A negative radiographic report should not delay biopsy if a dominant or clinically suspicious mass is present. Up to ten percent of cancers are not identified on mammography. A negative report may reinforce clinical impression. Adenosis and dense breasts may obscure an underlying neoplasm. False positive reports average 6 to 10%. Patient will receive a letter notifying them of these results.
== END ==
LOC: DI 01:56
PROVIDERS: PCP Family Medicine; Visit Provider Family Medicine
DX: Z12.31 Encounter for screening mammogram for malignant neoplasm of breast (principal)
CPT/HCPCS: 77063; 77067